=== PATIENT | male | born 1935 | race African-American/Black ===

== ENCOUNTER 2019-02-22 21:12 | Inpatient (IN) | payer MEDICARE ==
[~2019-02-22] VITALS: Ht 182.9 cm; Wt 89.8 kg
[2019-02-22 21:45] LABS: BILIRUBIN,URINE NEGATIVE (NEG); CLARITY,URINE CLEAR; COLOR,URINE YELLOW; NITRITE,URINE POSITIVE (NEG); PROTEIN,URINE 100 mg/dL (NEG-TRACE)
--- NOTE | 2019-02-22 21:53 | RAD ---
EXAM: Chest, single view. HISTORY: Weakness. COMPARISON: None. FINDINGS: A frontal view of the chest is obtained. There is no infiltrate, pleural effusion or pneumothorax. The heart is normal in size. There is a cardiac pacemaker with leads in expected position. IMPRESSION: No acute pulmonary finding. Electronically signed by: Deb Mattson MD (02/22/2019 9:50 PM) [facility]
[2019-02-22 21:56] LABS: BACTERIA,URINE MODERATE /HPF (0-FEW); SQUAMOUS EPITHELIAL CELL,UR FEW /LPF; WBC,URINE 20-40 /HPF (0-4)
[2019-02-22 21:57] LABS: HYALINE CASTS, URINE FEW /HPF; YEAST,URINE PRESENT /HPF
[2019-02-22 22:57] LABS: BASO % 0 % (0-3); EOS % 0 % (0-3); HEMATOCRIT 34.1 % (39.0-53.0); HEMOGLOBIN 11.4 g/dL (13.0-17.5); LYMPH # 1.1 x10^3/uL (1.0-4.8); LYMPH % 9 % (24-48); MEAN CORPUSCULAR HEMOGLOBIN 30 pg (25-35); MEAN CORPUSCULAR HGB CONC 33 g/dL (31-37); MEAN CORPUSCULAR VOLUME 90 fL (79-100); MONO % 8 % (0-9); NEUT # 10.6 x10^3uL (1.8-7.7); NEUT % 84 % (31-73); PLATELET COUNT 157 x10^3/uL (140-400); WHITE BLOOD COUNT 12.7 x10^3/uL (4.0-11.0)
[2019-02-22 23:10] LABS: CALCIUM 9.1 mg/dL (8.5-10.1); CREATININE 1.6 mg/dL (0.7-1.3); GFR 50.1; POTASSIUM 3.7 mmol/L (3.5-5.1)
[2019-02-22 23:16] LABS: ALBUMIN 3.6 g/dL (3.4-5.0); TOTAL BILIRUBIN 0.8 mg/dL (0.2-1.0); TOTAL PROTEIN 7.1 g/dL (6.4-8.2)
--- NOTE | 2019-02-22 23:32 | PHYS DOC ---
Adult General Chief Complaint Chief Complaint: WEAKNESS/GENERALIZED HPI HPI Patient is a 83 year old male with history of neurogenic bladder with suprapubic catheter placement who presents with generalized weakness and fa tigue. Patient has been in bed for the past 24 hours. Denies fever, chills, nausea vomiting or sweats. No chest pain palpitations shortness of breath. Denies urinary symptoms. Reports decreased appetite and oral intake over the past 24 hours. No abdominal pain, constipation or diarrhea. Additional history obtained from patient's family members who are present at bedside. [] Review of Systems Review of Systems Review symptoms as per history of present illness.] All other systems were reviewed and found to be within normal limits, except as documented in this note. Physical Exam Physical Exam Constitutional: Generally weak and fatigued appearing.. [] HENT: Normocephalic, atraumatic, bilateral external ears normal, oropharynx moist, no oral exudates, nose normal. [] Eyes: PERRLA, EOMI, conjunctiva normal, no discharge. [] Neck: Normal range of motion, no tenderness, supple, no stridor. [] Cardiovascular:Heart rate regular rhythm, no murmur [] Lungs & Thorax: Bilateral breath sounds clear to auscultation [] Abdomen: Bowel sounds normal, soft, no tenderness, suprapubic catheter in place with concentrated urine with sediment present in tubing and container with[] Skin: Warm, dry, no erythema, no rash. [] Neurologic: Alert and oriented X 3, normal motor function, normal sensory function, no focal deficits noted. [] Psychologic: Affect normal, judgement normal, mood normal. [] Current Patient Data Lab Values Laboratory Tests Test 02/22/19 21:24 02/22/19 22:03 02/22/19 22:44 Urine Collection Type Unknown Urine Color Yellow Urine Clarity Clear Urine pH 5.0 Urine Specific [place] 1.025 Urine Protein 100 mg/dL (NEG-TRACE) Urine Glucose (UA) Negative mg/dL (NEG) Urine Ketones (Stick) Trace mg/dL (NEG) Urine Blood Moderate (NEG) Urine Nitrite Positive (NEG) Urine Bilirubin Negative (NEG) Urine Urobilinogen Dipstick 1.0 mg/dL (0.2 mg/dL) Urine Leukocyte Esterase Moderate (NEG) Urine RBC 6-10 /HPF (0-2) Urine WBC 20-40 /HPF (0-4) Urine Squamous Epithelial Cells Few /LPF Urine Bacteria Moderate /HPF (0-FEW) Urine Hyaline Casts Few /HPF Urine Mucus Mod /LPF Urine Yeast Present /HPF Glucose (Fingerstick) 194 mg/dL (70-99) H White Blood Count 12.7 x10^3/uL (4.0-11.0) H Red Blood Count 3.80 x10^6/uL (4.30-5.70) L Hemoglobin 11.4 g/dL (13.0-17.5) L Hematocrit 34.1 % (39.0-53.0) L Mean Corpuscular Volume 90 fL (79-100) Mean Corpuscular Hemoglobin 30 pg (25-35) Mean Corpuscular Hemoglobin Concent 33 g/dL (31-37) Red Cell Distribution Width 15.0 % (11.5-14.5) H Platelet Count 157 x10^3/uL (140-400) Neutrophils (%) (Auto) 84 % (31-73) H Lymphocytes (%) (Auto) 9 % (24-48) L Monocytes (%) (Auto) 8 % (0-9) Eosinophils (%) (Auto) 0 % (0-3) Basophils (%) (Auto) 0 % (0-3) Neutrophils # (Auto) 10.6 x10^3uL (1.8-7.7) H Lymphocytes # (Auto) 1.1 x10^3/uL (1.0-4.8) Monocytes # (Auto) 1.0 x10^3/uL (0.0-1.1) Eosinophils # (Auto) 0.0 x10^3/uL (0.0-0.7) Basophils # (Auto) 0.0 x10^3/uL (0.0-0.2) Sodium Level 131 mmol/L (136-145) L Potassium Level 3.7 mmol/L (3.5-5.1) Chloride Level 97 mmol/L (98-107) L Carbon Dioxide Level 27 mmol/L (21-32) Anion Gap 7 (6-14) Blood Urea Nitrogen 28 mg/dL (8-26) H Creatinine 1.6 mg/dL (0.7-1.3) H Estimated GFR (Cockcroft-Gault) 50.1 BUN/Creatinine Ratio 18 (6-20) Glucose Level 185 mg/dL (70-99) H Lactic Acid Level 1.5 mmol/L (0.4-2.0) Calcium Level 9.1 mg/dL (8.5-10.1) Total Bilirubin 0.8 mg/dL (0.2-1.0) Aspartate Amino Transferase (AST) 9 U/L (15-37) L Alanine Aminotransferase (ALT) 14 U/L (16-63) L Alkaline Phosphatase 61 U/L (46-116) Troponin I Quantitative < 0.017 ng/mL (0.000-0.055) Total Protein 7.1 g/dL (6.4-8.2) Albumin 3.6 g/dL (3.4-5.0) Albumin/Globulin Ratio 1.0 (1.0-1.7) Thyroid Stimulating Hormone (TSH) 1.072 uIU/mL (0.358-3.74) Laboratory Tests 02/22/19 22:44 Laboratory Tests 02/22/19 22:44 EKG EKG [EKG: Reviewed] Radiology/Procedures Radiology/Procedures [cHest x-ray: No acute cardiopulmonary disease on preliminary ED review] Course & Med Decision Making Course & Med Decision Making Pertinent Labs and Imaging studies reviewed. (See chart for details) [EKG, lab and imaging studies reviewed. IV fluids antibiotics given. Will admit to the hospital service for further evaluation and treatment.] Dragon Disclaimer Dragon Disclaimer This electronic medical record was generated, in whole or in part, using a voice recognition dictation system. Departure Departure Impression: Primary Impression: UTI (urinary tract infection) Additional Impressions: Sepsis Hyponatremia Hyperglycemia Disposition: 09 ADMITTED INPATIENT Condition: LEFT WITHOUT BEING SEEN Referrals: STEVE ROSE (PCP) Problem Qualifiers BUFFY RENEE DO Feb 22, 2019 23:32
[2019-02-22] MEDS: IV NORMAL SALINE 1000ML BAG 1,000 ML IV SCH (23:45)
[2019-02-22] MEDS ORDERED: cefTRIAXone IV Push 1 GM VIAL. IVP ONE (23:45)
[2019-02-22] MEDS ORDERED: ONDANSETRON PF 4 MG/2 ML VIAL. IV PRN (23:45)
[2019-02-22] MEDS ORDERED: IV NORMAL SALINE 1000ML BAG 1,000 ML IV ONE (23:45)
[2019-02-23] VITALS (7 sets, daily range): BP systolic 117–147; BP diastolic 66–78
[2019-02-23] MEDS ORDERED: ASPI-630 PO (01:52)
[2019-02-23] MEDS ORDERED: METO-239 PO (01:52)
[2019-02-23] MEDS ORDERED: CYAN10005 PO (01:52)
[2019-02-23] MEDS ORDERED: INSU100I27 SQ (01:52)
[2019-02-23] MEDS ORDERED: LINA5TAB PO (01:52)
[2019-02-23] MEDS ORDERED: SIMV20TA3 PO (01:52)
[2019-02-23] MEDS ORDERED: OMEP20TA8 PO (01:52)
[2019-02-23] MEDS ORDERED: POLY17PO29 PO (01:52)
[2019-02-23 05:05] LABS: BASO % 0 % (0-3); EOS % 0 % (0-3); HEMATOCRIT 32.4 % (39.0-53.0); HEMOGLOBIN 10.9 g/dL (13.0-17.5); LYMPH # 1.8 x10^3/uL (1.0-4.8); LYMPH % 16 % (24-48); MEAN CORPUSCULAR HEMOGLOBIN 31 pg (25-35); MEAN CORPUSCULAR HGB CONC 34 g/dL (31-37); MEAN CORPUSCULAR VOLUME 91 fL (79-100); MONO # 0.9 x10^3/uL (0.0-1.1); MONO % 8 % (0-9); NEUT # 8.6 x10^3uL (1.8-7.7); NEUT % 76 % (31-73); PLATELET COUNT 140 x10^3/uL (140-400); RED BLOOD COUNT 3.55 x10^6/uL (4.30-5.70); RED CELL DISTRIBUTION WIDTH 15.5 % (11.5-14.5); WHITE BLOOD COUNT 11.4 x10^3/uL (4.0-11.0)
[2019-02-23 05:23] LABS: ALBUMIN 3.1 g/dL (3.4-5.0); ALBUMIN/GLOBULIN RATIO 1.1 (1.0-1.7); CALCIUM 8.5 mg/dL (8.5-10.1); CREATININE 1.5 mg/dL (0.7-1.3); GFR 53.9; POTASSIUM 3.8 mmol/L (3.5-5.1); TOTAL BILIRUBIN 0.8 mg/dL (0.2-1.0); TOTAL PROTEIN 5.9 g/dL (6.4-8.2)
[2019-02-23] MEDS: IV NORMAL SALINE 1000ML BAG 1,000 ML IV SCH ×3 (06:25→20:49)
[2019-02-23] MEDS ORDERED: DEXTROSE 50% 25 GM / 50ML DISP.SYRIN. IV PRN ×2 (07:00→10:30)
--- NOTE | 2019-02-23 07:34 | EKG ---
[facility] [address] [place] [address] Test Date: 2019-02-22 Test Time: 21:51:13 Pat Name: MJ PATTEN Department: Room: Gender: M Help Desk Supervisor: MELISSA : [id number] Requested By: BUFFY RENEE Order Number: [id number] Reading MD: Measurements Intervals [place] Rate: 83 P: -39 MO: 184 QRS: -56 QRSD: 134 T: 92 QT: 394 QTc: 469 Interpretive Statements SINUS RHYTHM ABNORMAL LEFT AXIS DEVIATION LEFT ANTERIOR FASCICULAR BLOCK RIGHT BUNDLE BRANCH BLOCK BIFASCICULAR BLOCK QRS(T) CONTOUR ABNORMALITY CONSIDER ANTEROSEPTAL MYOCARDIAL DAMAGE ABNORMAL ECG RI6.01 No previous ECG available for comparison
[2019-02-23] MEDS ORDERED: INSULIN LISPRO 300 UNITS/3 ML INSULN.PEN. SQ SCH (08:00)
--- NOTE | 2019-02-23 10:42 | PDOC1 ---
History and Physical Date of Admission Date of Admission DATE: 02/23/19 TIME: 10:27 Identification/Chief Complaint Chief Complaint weakness, confusion Source Source: Chart review, Patient History of Present Illness History of Present Illness Mr. Sellers, is a 83 year old male admit with confusion and weakness. he has a recent history of neurogenic bladder with suprapubic catheter placement at a few months ago. He had a long course there with sepsis, then weakenss, required SNU for a time, and is still on home health, cath changed 02/09 Patient had been in bed for the past 24 hours. Denies fever, chills, nausea vomiting or sweats. No chest pain palpitations shortness of breath Reports decreased appetite and oral intake over the past 24 hours. not hungry this AM he is in room and greatly assisted with this story Past Medical History Cardiovascular: HTN CENTRAL NERVOUS SYSTEM: Dementia (decline) Heme/Onc: B12 deficiency Musculoskeletal: low back pain Endocrine: Diabetes Past Surgical History Past Surgical History: Other (suprapubic cath) Family History Family History: No Significant Social History Smoke: No ALCOHOL: none Current Problem List Problem List Problems Medical Problems: (1) Hyperglycemia Status: Acute (2) Hyponatremia Status: Acute (3) Sepsis Status: Acute (4) UTI (urinary tract infection) Status: Acute Current Medications Current Medications Current Medications Sodium Chloride 1,000 ml @ 1,000 mls/hr 1X ONCE IV Last administered on 02/22/19at 23:36; Start 02/22/19 at 23:45; Stop 02/23/19 at 00:44; Status DC Ceftriaxone Sodium (Rocephin) 1 gm 1X ONCE IVP Last administered on 02/22/19at 23:44; Start 02/22/19 at 23:45; Stop 02/22/19 at 23:46; Status DC Ondansetron HCl (Zofran) 4 mg PRN Q8HRS PRN IV NAUSEA/VOMITING; Start 02/22/19 at 23:45; Stop 02/23/19 at 23:44 Sodium Chloride 1,000 ml @ 150 mls/hr Q6H40M IV Last administered on 02/22/19at 23:45; Start 02/22/19 at 23:45; Stop 02/23/19 at 23:44 Insulin Human Lispro (HumaLOG) 0-5 UNITS TIDWMEALS SQ ; Start 02/23/19 at 08:00 Dextrose (Dextrose 50%-Water Syringe) 12.5 gm PRN Q15MIN PRN IV SEE COMMENTS; Start 02/23/19 at 07:00 Active Scripts Active Reported Metoprolol Succinate ( Xl ) (Metoprolol Succinate) 25 Mg Tab.er.24h 12.5 Mg PO HS Tradjenta (Linagliptin) 5 Mg Tablet 5 Mg PO DAILY Simvastatin 20 Mg Tablet 20 Mg PO HS Miralax (Polyethylene Glycol 3350) 17 Gm Powd.pack 1 Pkt PO DAILY Omeprazole 20 Mg Tablet.dr 20 Mg PO DAILY Levemir Flextouch (Insulin Detemir) 100 Unit/1 Ml Insuln.pen 14 Unit SQ HS Vitamin B-12 (Cyanocobalamin (Vitamin B-12)) 1,000 Mcg Tablet 500 Mcg PO DAILY Aspirin 81 Mg Tab.chew 1 Tab PO HS Allergies Allergies: Coded Allergies: No Known Drug Allergies (Unverified , 02/22/19) ROS General: YES: Chills, Fatigue, Malaise, Appetite PSYCHOLOGICAL ROS: YES: Disorientation, Sleep disturbances; No: Anxiety, Behavioral Disorder, Concentration difficultie, Decreased asad yue, Depression, Hallucinations, Hostility, Irritablity, Memory difficulties, Mood Swings, Obsessive thoughts, Other Eyes: No Blurry vision, No Decreased vision, No Double vision, No Dry eyes, No Excessive tearing, No Eye Pain, No Itchy Eyes, No Loss of vision, No Photophobia, No Scotomata, No Uses contacts, No Uses glasses, No Other HEENT: No: Heacaches, Visual Changes, Hearing change, Nasal congestion, Nasal discharge, Oral lesions, Sinus pain, Sore Throat, Epistaxis, Sneezing, Snoring, Tinnitus, Vertigo, Vocal changes, Other Respiratory: No: Cough, Hemoptysis, Orthopnea, Pleuritic Pain, Shortness of breath, SOB with excertion, Sputum Changes, Stridor, Tachypnea, Wheezing, Other Cardiovascular: No Chest Pain, No Palpitations, No Orthopnea, No Paroxysmal Noc. Dyspnea, No Edema, No Lt Headedness, No Other Gastrointestinal: No Nausea, No Vomiting, No Abdominal Pain, No Diarrhea, No Constipation, No Melena, No Hematochezia, No Other Genitourinary: YES Dysuria, YES Other Musculoskeletal: No Gait Disturbance, No Joint Pain, No Joint Stiffness, No Joint Swelling, No Muscle Pain, No Muscular Weakness, No Pain In:, No Swelling In:, No Other Neurological: No Behavorial Changes, No Bowel/Bladder ControlChng, No Confusion, No Dizziness, No Gait Disturbance, No Headaches, No Impaired Coord/balance, No Memory Loss, No Numbness/Tingling, No Seizures, No Speech Problems, No Tremors, No Visual Changes, No Weakness, No Other Skin: Yes Dry Skin Physical Exam General: Alert, Cooperative, No acute distress, Other (oriented 3/4) HEENT: Atraumatic, PERRLA, Mucous membr. moist/pink Lungs: Clear to auscultation, Normal air movement Heart: S1S2, no gallops, no murmurs Extremities: No cyanosis, No edema, Normal pulses Skin: No rashes Neuro: Normal speech, Sensation intact Psych/Mental Status: Mental status NL Vitals Vitals Vital Signs Date Time Temp Pulse Resp B/P (MAP) Pulse Ox O2 Delivery O2 Flow Rate FiO2 02/23/19 08:00 Room Air 02/23/19 07:00 98.7 79 12 117/69 (85) 92 98.7 Labs Labs Laboratory Tests Test 02/22/19 21:24 02/22/19 22:03 02/22/19 22:44 02/23/19 04:10 Urine Collection Type Unknown Urine Color Yellow Urine Clarity Clear Urine pH 5.0 Urine Specific [place] 1.025 Urine Protein 100 mg/dL (NEG-TRACE) Urine Glucose (UA) Negative mg/dL (NEG) Urine Ketones (Stick) Trace mg/dL (NEG) Urine Blood Moderate (NEG) Urine Nitrite Positive (NEG) Urine Bilirubin Negative (NEG) Urine Urobilinogen Dipstick 1.0 mg/dL (0.2 mg/dL) Urine Leukocyte Esterase Moderate (NEG) Urine RBC 6-10 /HPF (0-2) Urine WBC 20-40 /HPF (0-4) Urine Squamous Epithelial Cells Few /LPF Urine Bacteria Moderate /HPF (0-FEW) Urine Hyaline Casts Few /HPF Urine Mucus Mod /LPF Urine Yeast Present /HPF Glucose (Fingerstick) 194 mg/dL (70-99) White Blood Count 12.7 x10^3/uL (4.0-11.0) 11.4 x10^3/uL (4.0-11.0) Red Blood Count 3.80 x10^6/uL (4.30-5.70) 3.55 x10^6/uL (4.30-5.70) Hemoglobin 11.4 g/dL (13.0-17.5) 10.9 g/dL (13.0-17.5) Hematocrit 34.1 % (39.0-53.0) 32.4 % (39.0-53.0) Mean Corpuscular Volume 90 fL (79-100) 91 fL (79-100) Mean Corpuscular Hemoglobin 30 pg (25-35) 31 pg (25-35) Mean Corpuscular Hemoglobin Concent 33 g/dL (31-37) 34 g/dL (31-37) Red Cell Distribution Width 15.0 % (11.5-14.5) 15.5 % (11.5-14.5) Platelet Count 157 x10^3/uL (140-400) 140 x10^3/uL (140-400) Neutrophils (%) (Auto) 84 % (31-73) 76 % (31-73) Lymphocytes (%) (Auto) 9 % (24-48) 16 % (24-48) Monocytes (%) (Auto) 8 % (0-9) 8 % (0-9) Eosinophils (%) (Auto) 0 % (0-3) 0 % (0-3) Basophils (%) (Auto) 0 % (0-3) 0 % (0-3) Neutrophils # (Auto) 10.6 x10^3uL (1.8-7.7) 8.6 x10^3uL (1.8-7.7) Lymphocytes # (Auto) 1.1 x10^3/uL (1.0-4.8) 1.8 x10^3/uL (1.0-4.8) Monocytes # (Auto) 1.0 x10^3/uL (0.0-1.1) 0.9 x10^3/uL (0.0-1.1) Eosinophils # (Auto) 0.0 x10^3/uL (0.0-0.7) 0.0 x10^3/uL (0.0-0.7) Basophils # (Auto) 0.0 x10^3/uL (0.0-0.2) 0.0 x10^3/uL (0.0-0.2) Sodium Level 131 mmol/L (136-145) 139 mmol/L (136-145) Potassium Level 3.7 mmol/L (3.5-5.1) 3.8 mmol/L (3.5-5.1) Chloride Level 97 mmol/L (98-107) 104 mmol/L (98-107) Carbon Dioxide Level 27 mmol/L (21-32) 28 mmol/L (21-32) Anion Gap 7 (6-14) 7 (6-14) Blood Urea Nitrogen 28 mg/dL (8-26) 23 mg/dL (8-26) Creatinine 1.6 mg/dL (0.7-1.3) 1.5 mg/dL (0.7-1.3) Estimated GFR (Cockcroft-Gault) 50.1 53.9 BUN/Creatinine Ratio 18 (6-20) 15 (6-20) Glucose Level 185 mg/dL (70-99) 85 mg/dL (70-99) Lactic Acid Level 1.5 mmol/L (0.4-2.0) Calcium Level 9.1 mg/dL (8.5-10.1) 8.5 mg/dL (8.5-10.1) Total Bilirubin 0.8 mg/dL (0.2-1.0) 0.8 mg/dL (0.2-1.0) Aspartate Amino Transf (AST/SGOT) 9 U/L (15-37) 9 U/L (15-37) Alanine Aminotransferase (ALT/SGPT) 14 U/L (16-63) 11 U/L (16-63) Alkaline Phosphatase 61 U/L (46-116) 56 U/L (46-116) Troponin I Quantitative < 0.017 ng/mL (0.000-0.055) Total Protein 7.1 g/dL (6.4-8.2) 5.9 g/dL (6.4-8.2) Albumin 3.6 g/dL (3.4-5.0) 3.1 g/dL (3.4-5.0) Albumin/Globulin Ratio 1.0 (1.0-1.7) 1.1 (1.0-1.7) Thyroid Stimulating Hormone (TSH) 1.072 uIU/mL (0.358-3.74) FY-Eig-K-Type Natriuretic Peptide 527 pg/mL (0-449) Test 02/23/19 07:36 Glucose (Fingerstick) 59 mg/dL (70-99) Laboratory Tests Test 02/22/19 21:24 02/22/19 22:03 02/22/19 22:44 02/23/19 04:10 Urine Collection Type Unknown Urine Color Yellow Urine Clarity Clear Urine pH 5.0 Urine Specific [place] 1.025 Urine Protein 100 mg/dL (NEG-TRACE) Urine Glucose (UA) Negative mg/dL (NEG) Urine Ketones (Stick) Trace mg/dL (NEG) Urine Blood Moderate (NEG) Urine Nitrite Positive (NEG) Urine Bilirubin Negative (NEG) Urine Urobilinogen Dipstick 1.0 mg/dL (0.2 mg/dL) Urine Leukocyte Esterase Moderate (NEG) Urine RBC 6-10 /HPF (0-2) Urine WBC 20-40 /HPF (0-4) Urine Squamous Epithelial Cells Few /LPF Urine Bacteria Moderate /HPF (0-FEW) Urine Hyaline Casts Few /HPF Urine Mucus Mod /LPF Urine Yeast Present /HPF Glucose (Fingerstick) 194 mg/dL (70-99) White Blood Count 12.7 x10^3/uL (4.0-11.0) 11.4 x10^3/uL (4.0-11.0) Red Blood Count 3.80 x10^6/uL (4.30-5.70) 3.55 x10^6/uL (4.30-5.70) Hemoglobin 11.4 g/dL (13.0-17.5) 10.9 g/dL (13.0-17.5) Hematocrit 34.1 % (39.0-53.0) 32.4 % (39.0-53.0) Mean Corpuscular Volume 90 fL (79-100) 91 fL (79-100) Mean Corpuscular Hemoglobin 30 pg (25-35) 31 pg (25-35) Mean Corpuscular Hemoglobin Concent 33 g/dL (31-37) 34 g/dL (31-37) Red Cell Distribution Width 15.0 % (11.5-14.5) 15.5 % (11.5-14.5) Platelet Count 157 x10^3/uL (140-400) 140 x10^3/uL (140-400) Neutrophils (%) (Auto) 84 % (31-73) 76 % (31-73) Lymphocytes (%) (Auto) 9 % (24-48) 16 % (24-48) Monocytes (%) (Auto) 8 % (0-9) 8 % (0-9) Eosinophils (%) (Auto) 0 % (0-3) 0 % (0-3) Basophils (%) (Auto) 0 % (0-3) 0 % (0-3) Neutrophils # (Auto) 10.6 x10^3uL (1.8-7.7) 8.6 x10^3uL (1.8-7.7) Lymphocytes # (Auto) 1.1 x10^3/uL (1.0-4.8) 1.8 x10^3/uL (1.0-4.8) Monocytes # (Auto) 1.0 x10^3/uL (0.0-1.1) 0.9 x10^3/uL (0.0-1.1) Eosinophils # (Auto) 0.0 x10^3/uL (0.0-0.7) 0.0 x10^3/uL (0.0-0.7) Basophils # (Auto) 0.0 x10^3/uL (0.0-0.2) 0.0 x10^3/uL (0.0-0.2) Sodium Level 131 mmol/L (136-145) 139 mmol/L (136-145) Potassium Level 3.7 mmol/L (3.5-5.1) 3.8 mmol/L (3.5-5.1) Chloride Level 97 mmol/L (98-107) 104 mmol/L (98-107) Carbon Dioxide Level 27 mmol/L (21-32) 28 mmol/L (21-32) Anion Gap 7 (6-14) 7 (6-14) Blood Urea Nitrogen 28 mg/dL (8-26) 23 mg/dL (8-26) Creatinine 1.6 mg/dL (0.7-1.3) 1.5 mg/dL (0.7-1.3) Estimated GFR (Cockcroft-Gault) 50.1 53.9 BUN/Creatinine Ratio 18 (6-20) 15 (6-20) Glucose Level 185 mg/dL (70-99) 85 mg/dL (70-99) Lactic Acid Level 1.5 mmol/L (0.4-2.0) Calcium Level 9.1 mg/dL (8.5-10.1) 8.5 mg/dL (8.5-10.1) Total Bilirubin 0.8 mg/dL (0.2-1.0) 0.8 mg/dL (0.2-1.0) Aspartate Amino Transf (AST/SGOT) 9 U/L (15-37) 9 U/L (15-37) Alanine Aminotransferase (ALT/SGPT) 14 U/L (16-63) 11 U/L (16-63) Alkaline Phosphatase 61 U/L (46-116) 56 U/L (46-116) Troponin I Quantitative < 0.017 ng/mL (0.000-0.055) Total Protein 7.1 g/dL (6.4-8.2) 5.9 g/dL (6.4-8.2) Albumin 3.6 g/dL (3.4-5.0) 3.1 g/dL (3.4-5.0) Albumin/Globulin Ratio 1.0 (1.0-1.7) 1.1 (1.0-1.7) Thyroid Stimulating Hormone (TSH) 1.072 uIU/mL (0.358-3.74) HX-Oqe-D-Type Natriuretic Peptide 527 pg/mL (0-449) Test 02/23/19 07:36 Glucose (Fingerstick) 59 mg/dL (70-99) VTE Prophylaxis Ordered VTE Prophylaxis Devices: No VTE Pharmacological Prophylaxi: Yes Assessment/Plan Assessment/Plan suprapubic cath, with infection, UTI, sepsis admit cognitive decline weakness and debility after sepsis from UTI at [facility] 11/09 Dm2, meds, add SSI CKD 3 TOMASZ LOCKE MD Feb 23, 2019 10:42
[2019-02-23] MEDS: INSULIN LISPRO 300 UNITS/3 ML INSULN.PEN. SQ SCH ×2 (12:00→17:00)
--- NOTE | 2019-02-23 12:23 | NUR ---
SS following for discharge planning. SS reviewed pt chart. Pt is from home with spouse and is currently on room air. SS met with pt in room and pt reported that he was on services with [facility], ; fax [phone]. SS will continue to follow for discharge planning.
[2019-02-23] MEDS: PANTOPRAZOLE 40 MG TABLET.DR. PO SCH (12:36)
[2019-02-23] MEDS: LINAGLIPTIN 5 MG TABLET PO SCH (12:36)
[2019-02-23] MEDS: CYANOCOBALAMIN (VITAMIN B-12) 1,000 MCG TABLET. PO SCH (12:36)
[2019-02-23] MEDS: POLYETHYLENE GLYCOL 3350 17 GM PACKET. PO SCH (12:36)
[2019-02-23] MEDS: ENOXAPARIN 40 MG/0.4 ML SYRINGE. SQ SCH (12:37)
--- NOTE | 2019-02-23 17:12 | NUR ---
Patient's dad came to visit. This nurse educated the family visitor on PPE, where gown and gloves were donned.
[2019-02-23] MEDS: cefTRIAXone IV Push 1 GM VIAL. IVP SCH (20:50)
[2019-02-23] MEDS: SIMVASTATIN 20 MG TABLET PO SCH (20:50)
[2019-02-23] MEDS: ASPIRIN CHEWABLE 81 MG TABLET. PO SCH (20:50)
[2019-02-23] MEDS: METOPROLOL SUCC 24HR ER 25 MG TAB.ER.24H. PO SCH (20:51)
[2019-02-23] MEDS: INSULIN GLARGINE 300 UNITS/3 ML INSULN.PEN. SQ SCH (21:04)
[2019-02-24 02:52] VITALS: BP 123/75
[2019-02-24] MEDS: PANTOPRAZOLE 40 MG TABLET.DR. PO SCH (06:40)
[2019-02-24 07:00] VITALS: BP 149/83
[2019-02-24] MEDS: INSULIN LISPRO 300 UNITS/3 ML INSULN.PEN. SQ SCH ×3 (08:00→17:00)
[2019-02-24] MEDS: LINAGLIPTIN 5 MG TABLET PO SCH (09:45)
[2019-02-24] MEDS: CYANOCOBALAMIN (VITAMIN B-12) 1,000 MCG TABLET. PO SCH (09:45)
[2019-02-24] MEDS: POLYETHYLENE GLYCOL 3350 17 GM PACKET. PO SCH (09:46)
[2019-02-24] MEDS: IV NORMAL SALINE 1000ML BAG 1,000 ML IV SCH ×2 (09:46→23:06)
--- NOTE | 2019-02-24 10:51 | PDOC ---
[facility] PROGRESS NOTE Chief Complaint Chief Complaint Suprapubic cath, with infection, UTI, sepsis Diabetes Chronic kidney disease Debilit History of Present Illness History of Present Illness Patient seen and examined this morning Discussed with his nurse and the case management team He is up in the chair Vitals Vitals Vital Signs Date Time Temp Pulse Resp B/P (MAP) Pulse Ox O2 Delivery O2 Flow Rate FiO2 02/24/19 07:00 98.4 76 18 149/83 (105) 92 Room Air 98.4 Physical Exam General: Alert, Cooperative, No acute distress, Other (oriented 3/4) Lungs: Clear Abdomen: Normal bowel sounds, Soft Extremities: No cyanosis, No edema, Normal pulses Skin: No rashes Labs Labs: Laboratory Tests Test 02/23/19 11:47 02/23/19 16:58 02/23/19 20:38 02/24/19 07:37 Glucose (Fingerstick) 125 mg/dL (70-99) 137 mg/dL (70-99) 145 mg/dL (70-99) 129 mg/dL (70-99) Assessment and Plan Assessmemt and Plan Problems Medical Problems: (1) Hyperglycemia Status: Acute (2) Hyponatremia Status: Acute Suprapubic cath, with infection, UTI, sepsis Diabetes Chronic kidney disease Debility Plan IV normal saline IV Rocephin Home meds DVT prophylaxis Full code Hope to discharge tomorrow Comment Review of Relevant I have reviewed the following items jasper (where applicable) has been applied. Labs Laboratory Tests Test 02/22/19 21:24 02/22/19 22:03 02/22/19 22:44 02/23/19 04:10 Urine Collection Type Unknown Urine Color Yellow Urine Clarity Clear Urine pH 5.0 Urine Specific [place] 1.025 Urine Protein 100 mg/dL (NEG-TRACE) Urine Glucose (UA) Negative mg/dL (NEG) Urine Ketones (Stick) Trace mg/dL (NEG) Urine Blood Moderate (NEG) Urine Nitrite Positive (NEG) Urine Bilirubin Negative (NEG) Urine Urobilinogen Dipstick 1.0 mg/dL (0.2 mg/dL) Urine Leukocyte Esterase Moderate (NEG) Urine RBC 6-10 /HPF (0-2) Urine WBC 20-40 /HPF (0-4) Urine Squamous Epithelial Cells Few /LPF Urine Bacteria Moderate /HPF (0-FEW) Urine Hyaline Casts Few /HPF Urine Mucus Mod /LPF Urine Yeast Present /HPF Glucose (Fingerstick) 194 mg/dL (70-99) White Blood Count 12.7 x10^3/uL (4.0-11.0) 11.4 x10^3/uL (4.0-11.0) Red Blood Count 3.80 x10^6/uL (4.30-5.70) 3.55 x10^6/uL (4.30-5.70) Hemoglobin 11.4 g/dL (13.0-17.5) 10.9 g/dL (13.0-17.5) Hematocrit 34.1 % (39.0-53.0) 32.4 % (39.0-53.0) Mean Corpuscular Volume 90 fL (79-100) 91 fL (79-100) Mean Corpuscular Hemoglobin 30 pg (25-35) 31 pg (25-35) Mean Corpuscular Hemoglobin Concent 33 g/dL (31-37) 34 g/dL (31-37) Red Cell Distribution Width 15.0 % (11.5-14.5) 15.5 % (11.5-14.5) Platelet Count 157 x10^3/uL (140-400) 140 x10^3/uL (140-400) Neutrophils (%) (Auto) 84 % (31-73) 76 % (31-73) Lymphocytes (%) (Auto) 9 % (24-48) 16 % (24-48) Monocytes (%) (Auto) 8 % (0-9) 8 % (0-9) Eosinophils (%) (Auto) 0 % (0-3) 0 % (0-3) Basophils (%) (Auto) 0 % (0-3) 0 % (0-3) Neutrophils # (Auto) 10.6 x10^3uL (1.8-7.7) 8.6 x10^3uL (1.8-7.7) Lymphocytes # (Auto) 1.1 x10^3/uL (1.0-4.8) 1.8 x10^3/uL (1.0-4.8) Monocytes # (Auto) 1.0 x10^3/uL (0.0-1.1) 0.9 x10^3/uL (0.0-1.1) Eosinophils # (Auto) 0.0 x10^3/uL (0.0-0.7) 0.0 x10^3/uL (0.0-0.7) Basophils # (Auto) 0.0 x10^3/uL (0.0-0.2) 0.0 x10^3/uL (0.0-0.2) Sodium Level 131 mmol/L (136-145) 139 mmol/L (136-145) Potassium Level 3.7 mmol/L (3.5-5.1) 3.8 mmol/L (3.5-5.1) Chloride Level 97 mmol/L (98-107) 104 mmol/L (98-107) Carbon Dioxide Level 27 mmol/L (21-32) 28 mmol/L (21-32) Anion Gap 7 (6-14) 7 (6-14) Blood Urea Nitrogen 28 mg/dL (8-26) 23 mg/dL (8-26) Creatinine 1.6 mg/dL (0.7-1.3) 1.5 mg/dL (0.7-1.3) Estimated GFR (Cockcroft-Gault) 50.1 53.9 BUN/Creatinine Ratio 18 (6-20) 15 (6-20) Glucose Level 185 mg/dL (70-99) 85 mg/dL (70-99) Lactic Acid Level 1.5 mmol/L (0.4-2.0) Calcium Level 9.1 mg/dL (8.5-10.1) 8.5 mg/dL (8.5-10.1) Total Bilirubin 0.8 mg/dL (0.2-1.0) 0.8 mg/dL (0.2-1.0) Aspartate Amino Transf (AST/SGOT) 9 U/L (15-37) 9 U/L (15-37) Alanine Aminotransferase (ALT/SGPT) 14 U/L (16-63) 11 U/L (16-63) Alkaline Phosphatase 61 U/L (46-116) 56 U/L (46-116) Troponin I Quantitative < 0.017 ng/mL (0.000-0.055) Total Protein 7.1 g/dL (6.4-8.2) 5.9 g/dL (6.4-8.2) Albumin 3.6 g/dL (3.4-5.0) 3.1 g/dL (3.4-5.0) Albumin/Globulin Ratio 1.0 (1.0-1.7) 1.1 (1.0-1.7) Thyroid Stimulating Hormone (TSH) 1.072 uIU/mL (0.358-3.74) UC-Ymc-V-Type Natriuretic Peptide 527 pg/mL (0-449) Test 02/23/19 07:36 02/23/19 11:47 02/23/19 16:58 02/23/19 20:38 Glucose (Fingerstick) 59 mg/dL (70-99) 125 mg/dL (70-99) 137 mg/dL (70-99) 145 mg/dL (70-99) Test 02/24/19 07:37 Glucose (Fingerstick) 129 mg/dL (70-99) Laboratory Tests Test 02/23/19 11:47 02/23/19 16:58 02/23/19 20:38 02/24/19 07:37 Glucose (Fingerstick) 125 mg/dL (70-99) 137 mg/dL (70-99) 145 mg/dL (70-99) 129 mg/dL (70-99) Microbiology 02/22/19 Blood Culture - Preliminary, Resulted NO GROWTH AFTER 1 DAY Medications Current Medications Sodium Chloride 1,000 ml @ 1,000 mls/hr 1X ONCE IV Last administered on 02/22/19at 23:36; Start 02/22/19 at 23:45; Stop 02/23/19 at 00:44; Status DC Ceftriaxone Sodium (Rocephin) 1 gm 1X ONCE IVP Last administered on 02/22/19at 23:44; Start 02/22/19 at 23:45; Stop 02/22/19 at 23:46; Status DC Ondansetron HCl (Zofran) 4 mg PRN Q8HRS PRN IV NAUSEA/VOMITING; Start 02/22/19 at 23:45; Stop 02/23/19 at 23:44; Status DC Sodium Chloride 1,000 ml @ 150 mls/hr Q6H40M IV Last administered on 02/23/19at 20:49; Start 02/22/19 at 23:45; Stop 02/23/19 at 23:44; Status DC Insulin Human Lispro (HumaLOG) 0-5 UNITS TIDWMEALS SQ ; Start 02/23/19 at 08:00; Stop 02/23/19 at 10:45; Status DC Dextrose (Dextrose 50%-Water Syringe) 12.5 gm PRN Q15MIN PRN IV SEE COMMENTS; Start 02/23/19 at 07:00 Ceftriaxone Sodium (Rocephin) 1 gm Q24H IVP Last administered on 02/23/19at 20:50; Start 02/23/19 at 21:00 Aspirin (Children'S Aspirin) 81 mg HS PO Last administered on 02/23/19at 20:50; Start 02/23/19 at 21:00 Cyanocobalamin (Vitamin B-12) 500 mcg DAILY PO Last administered on 02/24/19at 09:45; Start 02/23/19 at 11:00 Linagliptin (Tradjenta) 5 mg DAILY PO Last administered on 02/24/19at 09:45; Start 02/23/19 at 11:00 Metoprolol Succinate (Toprol Xl) 12.5 mg HS PO Last administered on 02/23/19at 20:51; Start 02/23/19 at 21:00 Insulin Glargine (Lantus) 14 units QHS SQ Last administered on 02/23/19at 21:04; Start 02/23/19 at 21:00 Pantoprazole Sodium (Protonix) 40 mg DAILYAC PO Last administered on 02/24/19at 06:40; Start 02/23/19 at 11:00 Polyethylene Glycol (miraLAX PACKET) 17 gm DAILY PO Last administered on 02/24/19at 09:46; Start 02/23/19 at 11:00 Simvastatin (Zocor) 20 mg HS PO Last administered on 02/23/19at 20:50; Start 02/23/19 at 21:00 Insulin Human Lispro (HumaLOG) 0-7 UNITS TIDWMEALS SQ ; Start 02/23/19 at 12:00 Dextrose (Dextrose 50%-Water Syringe) 12.5 gm PRN Q15MIN PRN IV SEE COMMENTS; Start 02/23/19 at 10:30 Enoxaparin Sodium (Lovenox Per Pharmacy Prophylaxis Dosing) 1 each PRN DAILY PRN MC SEE COMMENTS; Start 02/23/19 at 10:45 Enoxaparin Sodium (Lovenox 40mg Syringe) 40 mg Q24H SQ Last administered on 02/23/19at 12:37; Start 02/23/19 at 12:00 Sodium Chloride 1,000 ml @ 75 mls/hr [id number] IV Last administered on 02/24/19at 09:46; Start 02/24/19 at 09:30 Active Scripts Active Reported Metoprolol Succinate ( Xl ) (Metoprolol Succinate) 25 Mg Tab.er.24h 12.5 Mg PO HS Tradjenta (Linagliptin) 5 Mg Tablet 5 Mg PO DAILY Simvastatin 20 Mg Tablet 20 Mg PO HS Miralax (Polyethylene Glycol 3350) 17 Gm Powd.pack 1 Pkt PO DAILY Omeprazole 20 Mg Tablet.dr 20 Mg PO DAILY Levemir Flextouch (Insulin Detemir) 100 Unit/1 Ml Insuln.pen 14 Unit SQ HS Vitamin B-12 (Cyanocobalamin (Vitamin B-12)) 1,000 Mcg Tablet 500 Mcg PO DAILY Aspirin 81 Mg Tab.chew 1 Tab PO HS Vitals/I & O Vital Sign - Last 24 Hours 02/23/19 02/23/19 02/23/19 02/23/19 14:57 19:00 20:00 20:51 Temp 97.6 98.8 97.6 98.8 Pulse 72 79 79 Resp 14 16 B/P (MAP) 134/77 (96) 140/78 (98) 140/78 Pulse Ox 91 98 O2 Delivery Room Air Room Air Room Air 02/23/19 02/24/19 02/24/19 22:35 02:52 07:00 Temp 98.0 98.5 98.4 98.0 98.5 98.4 Pulse 77 80 76 Resp 18 18 18 B/P (MAP) 147/75 (99) 123/75 (91) 149/83 (105) Pulse Ox 96 95 92 O2 Delivery Room Air Room Air Room Air Intake and Output 02/23/19 02/23/19 02/24/19 15:00 23:00 07:00 Intake Total 472 ml 300 ml Output Total 900 ml 3600 ml Balance -428 ml -3300 ml YE GAVIRIA III DO Feb 24, 2019 10:51
[2019-02-24 11:00] VITALS: BP 159/89
[2019-02-24] MEDS: ENOXAPARIN 40 MG/0.4 ML SYRINGE. SQ SCH (12:55)
[2019-02-24 15:00] VITALS: BP 153/87
[2019-02-24 19:00] VITALS: BP 151/81
[2019-02-24 22:41] VITALS: BP 150/83
[2019-02-24] MEDS: SIMVASTATIN 20 MG TABLET PO SCH (23:04)
[2019-02-24] MEDS: METOPROLOL SUCC 24HR ER 25 MG TAB.ER.24H. PO SCH (23:05)
[2019-02-24] MEDS: cefTRIAXone IV Push 1 GM VIAL. IVP SCH (23:05)
[2019-02-24] MEDS: ASPIRIN CHEWABLE 81 MG TABLET. PO SCH (23:05)
[2019-02-24] MEDS: LACTOBACILLUS RHAMNOSUS GG 1 CAPSULE. PO SCH (23:05)
[2019-02-24] MEDS: INSULIN GLARGINE 300 UNITS/3 ML INSULN.PEN. SQ SCH (23:06)
[2019-02-25 03:00] VITALS: BP 119/77
[2019-02-25 06:32] VITALS: BP 141/76
[2019-02-25] MEDS: INSULIN LISPRO 300 UNITS/3 ML INSULN.PEN. SQ SCH ×2 (08:00→12:00)
[2019-02-25] MEDS: LACTOBACILLUS RHAMNOSUS GG 1 CAPSULE. PO SCH (08:32)
[2019-02-25] MEDS: PANTOPRAZOLE 40 MG TABLET.DR. PO SCH (08:32)
[2019-02-25] MEDS: POLYETHYLENE GLYCOL 3350 17 GM PACKET. PO SCH (08:32)
[2019-02-25] MEDS: LINAGLIPTIN 5 MG TABLET PO SCH (08:32)
[2019-02-25] MEDS: CYANOCOBALAMIN (VITAMIN B-12) 1,000 MCG TABLET. PO SCH (08:32)
[2019-02-25 11:00] VITALS: BP 146/84
[2019-02-25] MEDS: ENOXAPARIN 40 MG/0.4 ML SYRINGE. SQ SCH (12:00)
[2019-02-25] MEDS: IV NORMAL SALINE 1000ML BAG 1,000 ML IV SCH (12:10)
[2019-02-25] MEDS ORDERED: CIPR500T94 PO (12:18)
--- NOTE | 2019-02-25 12:27 | PDOC3 ---
Discharge Summary Visit Information Date of Admission: Feb 23, 2019 Date of Discharge: Feb 25, 2019 Admitting Diagnosis Comment: Assessment/Plan suprapubic cath, with infection, UTI, sepsis admit cognitive decline weakness and debility after sepsis from UTI at 11/09 Dm2, meds, add SSI CKD 3 Final Diagnosis Problems Medical Problems: (1) Hyperglycemia Status: Acute (2) Hyponatremia Status: Acute (3) Sepsis Status: Acute (4) UTI (urinary tract infection) Status: Acute Brief Hospital Course Allergies Allergies Coded Allergies Type Severity Reaction Last Updated Verified No Known Drug Allergies 02/22/19 No Vital Signs Vital Signs Date Time Temp Pulse Resp B/P (MAP) Pulse Ox O2 Delivery O2 Flow Rate FiO2 02/25/19 11:00 97.5 80 16 146/84 (104) 97 Room Air 97.5 Lab Results Laboratory Tests Test 02/23/19 16:58 02/23/19 20:38 02/24/19 07:37 02/24/19 11:38 Glucose (Fingerstick) 137 mg/dL (70-99) 145 mg/dL (70-99) 129 mg/dL (70-99) 154 mg/dL (70-99) Test 02/24/19 16:44 02/24/19 20:31 02/25/19 07:47 02/25/19 11:46 Glucose (Fingerstick) 146 mg/dL (70-99) 167 mg/dL (70-99) 133 mg/dL (70-99) 128 mg/dL (70-99) Laboratory Tests Test 02/24/19 16:44 02/24/19 20:31 02/25/19 07:47 02/25/19 11:46 Glucose (Fingerstick) 146 mg/dL (70-99) 167 mg/dL (70-99) 133 mg/dL (70-99) 128 mg/dL (70-99) Brief Hospital Course Mr. Sellers is a 83 old male who came in with confusion and lethargy, suprapubic catheter, recent UTI at . GNR UTI on urine culture but did not want to wait for identification and sensitivities-I'm discharging on by mouth Cipro with strict instructions to follow up with [facility] and I have provided contact info Discussed with , patient seen and examined, DC time less than 30 minutes To go home with a catheter NO consults NOn toxic appearing, afebrile, no PT needs Discharge Information Condition at Discharge: Improved, Stable Follow Up: Weeks ([facility] urologuist or PCP) Disposition/Orders: D/C to Home Scheduled Aspirin (Aspirin) 81 Mg Tab.chew, 1 TAB PO HS for stroke prevention, #30 Ref 3 (Reported) Entered as Reported by: Yunier Lay on 02/23/19151 Last Taken: UNKNOWN on Unknown Date & Time Last Action: Continued on 02/23/191027 by TOMASZ LOCKE Ciprofloxacin Hcl (Cipro) 500 Mg Tablet, 1 TAB PO BID for UTI, #20 Prescribed by: REINALDO CLIFFORD on 02/25/19 1218 Cyanocobalamin (Vitamin B-12) (Vitamin B-12) 1,000 Mcg Tablet, 500 MCG PO DAILY for supplement, (Reported) Entered as Reported by: Yunier Lay on 02/23/19151 Last Taken: UNKNOWN on Unknown Date & Time Last Action: Continued on 02/23/191027 by TOMASZ LOCKE Insulin Detemir (Levemir Flextouch) 100 Unit/1 Ml Insuln.pen, 14 UNIT SQ HS for dm, (Reported) Entered as Reported by: Yunier Lay on 02/23/19151 Last Taken: UNKNOWN on Unknown Date & Time Last Action: Converted on 02/23/191027 by TOMASZ LOCKE Linagliptin (Tradjenta) 5 Mg Tablet, 5 MG PO DAILY for TYPE 2 DIABETES, (Reported) Entered as Reported by: Yunier Lay on 02/23/19151 Last Taken: UNKNOWN on Unknown Date & Time Last Action: Continued on 02/23/191027 by TOMASZ LOCKE Metoprolol Succinate (Metoprolol Succinate ( Xl )) 25 Mg Tab.er.24h, 12.5 MG PO HS for FOR HYPERTENSION, #30 Ref 0 (Reported) Entered as Reported by: Yunier Lay on 02/23/19151 Last Taken: UNKNOWN on Unknown Date & Time Last Action: Continued on 02/23/191027 by TOMASZ LOCKE Omeprazole (Omeprazole) 20 Mg Tablet.dr, 20 MG PO DAILY for reflux, (Reported) Entered as Reported by: Yunier Lay on 02/23/19151 Last Taken: UNKNOWN on Unknown Date & Time Last Action: Converted on 02/23/191027 by TOMASZ LOCKE Polyethylene Glycol 3350 (Miralax) 17 Gm Powd.pack, 1 PKT PO DAILY for constipation, (Reported) Entered as Reported by: Yunier Lay on 02/23/19151 Last Taken: UNKNOWN on Unknown Date & Time Last Action: Converted on 02/23/191027 by TOMASZ LOCKE Simvastatin (Simvastatin) 20 Mg Tablet, 20 MG PO HS for FOR CHOLESTEROL, #30 Ref 0 (Reported) Entered as Reported by: Yunier Lay on 02/23/19151 Last Taken: UNKNOWN on Unknown Date & Time Last Action: Converted on 02/23/191027 by REINALDO GOODMAN MD Feb 25, 2019 12:27
--- NOTE | 2019-02-25 13:29 | NUR ---
IRAIDA faxed clinicals to [facility].
== END 2019-02-25 13:58 | disposition home or self-care (01) | DRG 698 ==
LOC: ER 21:12 → 2 NORTH 22:30 → 5 NORTH 02-23 16:09
PROVIDERS: ADMIT Internal Medicine; ATTEND Internal Medicine
DX: T83.511A Infection and inflammatory reaction due to indwelling urethral catheter, initial encounter (principal); A41.9 Sepsis, unspecified organism; E87.1 Hypo-osmolality and hyponatremia; N39.0 Urinary tract infection, site not specified; N18.3 Chronic kidney disease, stage 3 (moderate); I12.9 Hypertensive chronic kidney disease with stage 1 through stage 4 chronic kidney disease, or unspecified chronic kidney disease; E11.65 Type 2 diabetes mellitus with hyperglycemia; E11.22 Type 2 diabetes mellitus with diabetic chronic kidney disease; F03.90 Unspecified dementia, unspecified severity, without behavioral disturbance, psychotic disturbance, mood disturbance, and anxiety; N31.9 Neuromuscular dysfunction of bladder, unspecified; Z79.899 Other long term (current) drug therapy
CPT/HCPCS: 36415; 71045; 80053; 81001; 82962; 83605; 83880; 84443; 84484; 85025; 87040; 87086; 93005; 96374; J0696; J1650; J1815; J7030; 99285-25

== ENCOUNTER 2019-05-11 22:16 | Emergency (ER) | payer MEDICARE ==
[~2019-05-11] VITALS: Ht 182.9 cm; Wt 88.5 kg
[~2019-05-11 22:16] MED LIST: ASPI-630 PO; CIPR500T94 PO; CYAN-25 PO; HYDR12.58 PO; INSU100I27 SQ; LACT1WAF PO; LINA5TAB PO; MELA3TAB2 PO; METO-239 PO; MULT1TAB52 PO; OMEP20TA8 PO; POLY17PO29 PO; SIMV20TA3 PO; [UNRECOGNIZED DRUG - CODE] OP
--- NOTE | 2019-05-11 22:43 | PHYS DOC ---
Past Medical History Past Medical History: Diabetes-Type II, GERD, High Cholesterol, Hypertension Past Surgical History: Appendectomy, Pacemaker, Other Additional Past Surgical Histo: SUPRAPUBIC CATH Alcohol Use: None Drug Use: None Adult General Chief Complaint Chief Complaint: URINE CATHETER PROBLEM HPI HPI Patient is a 83 year old male with history of indwelling suprapubic catheter since October 2018 who presents with his because catheter came out. Patient states his catheter came out sometimes today and patient was able to urinate after that. Home health care staff was not able to insert with twice try. Patient denies abdominal pain, nausea, fever and chills. Review of Systems Review of Systems Constitutional: Denies fever or chills [] Eyes: Denies change in visual acuity, redness, or eye pain [] HENT: Denies nasal congestion or sore throat [] Respiratory: Denies cough or shortness of breath [] Cardiovascular: No additional information not addressed in HPI [] GI: Denies abdominal pain, nausea, vomiting, bloody stools or diarrhea [] : Denies dysuria or hematuria [] Musculoskeletal: Denies back pain or joint pain [] Integument: Denies rash or skin lesions [] Neurologic: Denies headache, focal weakness or sensory changes [] Endocrine: Denies polyuria or polydipsia [] All other systems were reviewed and found to be within normal limits, except as documented in this note. Current Medications Current Medications Current Medications Medications (Trade) Dose Ordered Sig/Blake Start Time Stop Time Status Last Admin Dose Admin Clonidine HCl (Catapres) 0.1 mg 1X ONCE 05/11/19 23:55 05/11/19 23:56 DC 05/12/19 00:00 0.1 MG Allergies Allergies Allergies Coded Allergies Type Severity Reaction Last Updated Verified No Known Drug Allergies 02/22/19 No Physical Exam Physical Exam Constitutional: Well developed, well nourished, mild distress, non-toxic appearance. [] HENT: Normocephalic, atraumatic. Eyes: PERRLA, EOMI, conjunctiva normal, no discharge. [] Neck: Normal range of motion, no tenderness, supple, no stridor. [] Cardiovascular:Heart rate regular rhythm, no murmur [] Lungs & Thorax: Bilateral breath sounds clear to auscultation [] Abdomen: Bowel sounds normal, soft, no tenderness, no masses, no pulsatile masses. Small orifice of suprapubic catheter in place without drainage or sign of infection. Skin: Warm, dry, no erythema, no rash. [] Back: No tenderness, no CVA tenderness. [] Extremities: No tenderness, no cyanosis, no clubbing, ROM intact, no edema. [] Neurologic: Alert and oriented , no focal deficits noted. [] Current Patient Data Vital Signs Vital Signs Date Time Temp Pulse Resp B/P (MAP) Pulse Ox O2 Delivery O2 Flow Rate FiO2 05/12/19 00:00 93 202/109 05/11/19 22:20 97.6 20 96 Room Air 97.6 EKG EKG [] Radiology/Procedures Radiology/Procedures [] Course & Med Decision Making Course & Med Decision Making Evaluation of patient in ER showed 83-year-old male patient with indwelling suprapubic catheter since October 2018 presented to ER for reinsertion of harmon prapubic catheter that came out in unknown time today. Patient had the small old. Suprapubic area and unable to insert 12 [place] catheter. Patient had 200 mL urine blood and was able to urinate and had diaper. Patient was advised to follow with his urologist at [facility] oriented to this emergency room for insertion of suprapubic catheter by urologist. Patient also had elevation of blood pressure more than 200 that improved with clonidine and was advised to continue his home medication. Dragon Disclaimer Dragon Disclaimer This electronic medical record was generated, in whole or in part, using a voice recognition dictation system. Departure Departure Impression: Primary Impression: Mechanical complication of suprapubic catheter Additional Impression: Hypertensive urgency Disposition: 01 HOME, SELF-CARE (at 2352) Condition: IMPROVED Referrals: STEVE ROSE (PCP) Patient Instructions: Hypertension, Suprapubic Catheter Home Guide Additional Instructions: Follow-up with your urologist or on-call urologist in this hospital in the morning for placement of suprapubic catheter Continue current home medication Return to ER if not getting better Problem Qualifiers Primary Impression: Mechanical complication of suprapubic catheter Encounter type: initial encounter Qualified Codes: T83.090A - Other mechanical complication of cystostomy catheter, initial encounter EMILY KIRBY MD May 11, 2019 22:43
[2019-05-11] MEDS ORDERED: cloNIDine HCL 0.1 MG TABLET PO ONE (23:55)
[2019-05-12 00:15] VITALS: BP 189/102
== END 2019-05-12 00:20 | disposition home or self-care (01) ==
LOC: ER 22:16
DX: T83.090A Other mechanical complication of cystostomy catheter, initial encounter (principal); I16.0 Hypertensive urgency; E11.9 Type 2 diabetes mellitus without complications; K21.9 Gastro-esophageal reflux disease without esophagitis; E78.00 Pure hypercholesterolemia, unspecified; Z90.89 Acquired absence of other organs; Z95.0 Presence of cardiac pacemaker
CPT/HCPCS: 99283; 99284

== ENCOUNTER 2019-07-25 04:58 | Emergency (ER) | payer MEDICARE ==
[~2019-07-25] VITALS: Ht 182.9 cm; Wt 91.2 kg
[~2019-07-25 04:58] MED LIST changes: -MELA3TAB2 PO; +MELA3TAB56 PO; +SIMV20TA18 PO; -SIMV20TA3 PO
[2019-07-25] MEDS ORDERED: LIDOCAINE 2% JELLY 6ML IN APPLICATOR. ONE (06:00)
--- NOTE | 2019-07-25 06:21 | PHYS DOC ---
Past Medical History Past Medical History: Diabetes-Type II, GERD, High Cholesterol, Hypertension Past Surgical History: Appendectomy, Pacemaker, Other Additional Past Surgical Histo: SUPRAPUBIC CATH Alcohol Use: None Drug Use: None Adult General Chief Complaint Chief Complaint: URINE CATHETER PROBLEM HPI HPI Patient is an 83-year-old male who presents to the emergency department for evaluation. He has a long-standing history of Mora catheter use, and his catheter stopped draining last night, and he feels that his bladder is distended. He denies any other complaints. His urine which is in the collection bag appears clear. He has not had any fevers, flank pain, nausea, vomiting, or any other complaints. There are no alleviating or exacerbating factors to his symptoms. Catheter was changed about a month ago according to his . Bedside bladder scan reveals greater than 600 mL of urine in the bladder. Review of Systems Review of Systems Constitutional: Denies fever or chills [] Eyes: Denies change in visual acuity, redness, or eye pain [] HENT: Denies nasal congestion or sore throat [] Respiratory: Denies cough or shortness of breath [] Cardiovascular: The patient denies any shortness of breath, chest pain, palpitations, or orthopnea [] GI: Denies abdominal pain (other than bladder distention), nausea, vomiting, bloody stools or diarrhea [] : Denies dysuria or hematuria [] Musculoskeletal: Denies back pain or joint pain [] Integument: Denies rash or skin lesions [] Neurologic: Denies headache, focal weakness or sensory changes [] Endocrine: Denies polyuria or polydipsia [] All other systems were reviewed and found to be within normal limits, except as documented in this note. Current Medications Current Medications Current Medications Medications (Trade) Dose Ordered Sig/Blake Start Time Stop Time Status Last Admin Dose Admin Lidocaine HCl (Glydo (Lidocaine) Jelly) 6 betty Lingoing-MED ONCE 07/25/19 06:00 07/25/19 06:00 DC Allergies Allergies Allergies Coded Allergies Type Severity Reaction Last Updated Verified No Known Drug Allergies 02/22/19 No Physical Exam Physical Exam PHYSICAL EXAM: CONSTITUTIONAL: Well developed, well nourished HEAD: normocephalic, atraumatic EENT: PERRL, EOMI. Conjunctivae normal color, sclerae non-icteric; moist mucous membranes. NECK: Supple, non-tender; no meningismus. LUNGS: Lungs CTA, breathing even and unlabored. Normal air movement. HEART: Regular rate and rhythm, no murmur CHEST: No deformity; non-tender ABDOMEN: The abdomen is soft, there is firmness in the lower abdomen/suprapubic area, consistent with bladder distention, the remainder of the abdomen is soft and non-tender, no masses or bruits. EXTREM: Normal ROM; no deformity, no calf tenderness. Normal pulses palpable in all extremities. There is no pedal edema. SKIN: No rash; no diaphoresis NEURO: Alert; normal speech and cognition; CN's grossly intact; strength grossly intact without focal deficit. BACK: No CVA TTP. GENITOURINARY: Normal external genitalia, there is a Mora catheter in place. Current Patient Data Vital Signs Vital Signs Date Time Temp Pulse Resp B/P (MAP) Pulse Ox O2 Delivery O2 Flow Rate FiO2 07/25/19 05:11 97.3 81 22 216/103 (140) 95 Room Air 97.3 EKG EKG [] Radiology/Procedures Radiology/Procedures [] Course & Med Decision Making Course & Med Decision Making Mora catheter was placed, with resultant drainage of free-flowing, clear- appearing urine. The patient's symptoms have been relieved. Patient's blood pressure is also improved after Mora catheter placement. Dragon Disclaimer Dragon Disclaimer This electronic medical record was generated, in whole or in part, using a voice recognition dictation system. Departure Departure Impression: Primary Impression: Urinary retention Additional Impression: Mora catheter problem Disposition: 01 HOME, SELF-CARE Condition: STABLE Referrals: STEVE ROSE (PCP) Patient Instructions: Mora Catheter Care, Adult, Urinary Retention, Acute, Male Problem Qualifiers NELLY MURO MD Jul 25, 2019 06:21
[2019-07-25 06:30] VITALS: BP 126/70
== END 2019-07-25 06:55 | disposition home or self-care (01) ==
LOC: ER 04:58
DX: T83.098A Other mechanical complication of other urinary catheter, initial encounter (principal); R33.9 Retention of urine, unspecified; E78.00 Pure hypercholesterolemia, unspecified; K21.9 Gastro-esophageal reflux disease without esophagitis; E11.9 Type 2 diabetes mellitus without complications; I10 Essential (primary) hypertension; Z95.0 Presence of cardiac pacemaker; Z90.89 Acquired absence of other organs; Y84.6 Urinary catheterization as the cause of abnormal reaction of the patient, or of later complication, without mention of misadventure at the time of the procedure; Y92.89 Other specified places as the place of occurrence of the external cause
CPT/HCPCS: 51702; 99284; A4314

== ENCOUNTER 2019-09-18 20:39 | Emergency (ER) | payer MEDICARE ==
[~2019-09-18] VITALS: Ht 182.9 cm; Wt 93.0 kg
[2019-09-18 21:42] LABS: BILIRUBIN,URINE NEGATIVE (NEG); CLARITY,URINE CLOUDY; COLOR,URINE RED; NITRITE,URINE NEGATIVE (NEG); PROTEIN,URINE 30 mg/dL (NEG-TRACE)
[2019-09-18 21:48] VITALS: BP 199/91
[2019-09-18 21:50] LABS: BACTERIA,URINE FEW /HPF (0-FEW); RBC,URINE TNTC /HPF (0-2); WBC,URINE TNTC /HPF (0-4)
[2019-09-18 21:51] LABS: SQUAMOUS EPITHELIAL CELL,UR FEW /LPF
--- NOTE | 2019-09-18 21:52 | PHYS DOC ---
Past Medical History Past Medical History: Diabetes-Type II, GERD, High Cholesterol, Hypertension Past Surgical History: Appendectomy, Pacemaker, Other Additional Past Surgical Histo: SUPRAPUBIC CATH Alcohol Use: None Drug Use: None Adult General Chief Complaint Chief Complaint: URINE CATHETER PROBLEM HPI HPI 84-year-old male with underlying history of hypertension, hyperlipidemia, diabetes, chronic indwelling catheter presents to emergency department with complaints of hematuria. Patient is on blood thinning medications and states he noticed some bloating urine as well as small clots. Catheter has been changed within the last month according to his daughter. He denies any pain on exam ination denies any trauma that he is aware of. She denies any fever, nausea, vomiting, abdominal pain, headache or visual change. Review of Systems Review of Systems Constitutional: Denies fever or chills [] Respiratory: Denies cough or shortness of breath [] Cardiovascular: No additional information not addressed in HPI [] GI: Denies abdominal pain, nausea, vomiting, bloody stools or diarrhea [] : hematuria [] Musculoskeletal: Denies back pain or joint pain [] Neurologic: Denies headache, focal weakness or sensory changes [] All other systems were reviewed and found to be within normal limits, except as documented in this note. Allergies Allergies Allergies Coded Allergies Type Severity Reaction Last Updated Verified No Known Drug Allergies 02/22/19 No Physical Exam Physical Exam Constitutional: Well developed, well nourished, no acute distress, non-toxic appearance. [] Cardiovascular:Heart rate regular rhythm, no murmur [] Lungs & Thorax: Bilateral breath sounds clear to auscultation [] Abdomen: Bowel sounds normal, soft, no tenderness, no masses, no pulsatile masses. [] Skin: Warm, dry, no erythema, no rash. [] Back: No tenderness, no CVA tenderness. [] Extremities: No tenderness, no edema. [] Neurologic: Alert and oriented X 3, no focal deficits noted. [] Psychologic: Affect normal, judgement normal, mood normal. [] Current Patient Data Vital Signs Vital Signs Date Time Temp Pulse Resp B/P (MAP) Pulse Ox O2 Delivery O2 Flow Rate FiO2 09/18/19 20:55 99.3 23 207/98 (134) 95 Room Air 99.3 Lab Values Laboratory Tests Test 09/18/19 20:57 Urine Collection Type Unknown Urine Color Red Urine Clarity Cloudy Urine pH 6.0 Urine Specific [place] 1.020 Urine Protein 30 mg/dL (NEG-TRACE) Urine Glucose (UA) >=1000 mg/dL (NEG) Urine Ketones (Stick) Trace mg/dL (NEG) Urine Blood Large (NEG) Urine Nitrite Negative (NEG) Urine Bilirubin Negative (NEG) Urine Urobilinogen Dipstick 1.0 mg/dL (0.2 mg/dL) Urine Leukocyte Esterase Large (NEG) Urine RBC Tntc /HPF (0-2) Urine WBC Tntc /HPF (0-4) Urine Squamous Epithelial Cells Few /LPF Urine Bacteria Few /HPF (0-FEW) Urine Mucus Mod /LPF EKG EKG [] Radiology/Procedures Radiology/Procedures [] Course & Med Decision Making Course & Med Decision Making Pertinent Labs and Imaging studies reviewed. (See chart for details) []84-year-old male with underlying history of hypertension, hyperlipidemia, diabetes, chronic indwelling catheter presents to emergency department with complaints of hematuria. Patient is on blood thinning medications and states he noticed some bloating urine as well as small clots. Catheter has been changed within the last month according to his daughter. He denies any pain on examination denies any trauma that he is aware of. She denies any fever, nausea, vomiting, abdominal pain, headache or visual change. UAD reviewed no plans to treat given chronic indwelling catheter Catheter exchanged in ER without evidence of hematuria on exam Discussed findings with patient/family at bedside Recommend dc home with follow up as needed with PCP Return precautions provided Dragon Disclaimer Dragon Disclaimer This electronic medical record was generated, in whole or in part, using a voice recognition dictation system. Departure Departure Impression: Primary Impression: Hematuria Disposition: 01 HOME, SELF-CARE Condition: STABLE Referrals: STEVE ROSE (PCP) Patient Instructions: Hematuria-Brief Additional Instructions: Recommend follow up with PCP 3 - 5 days Return to the ER with worsening symptoms, intractable pain, fever, altered mental status Tylenol/Motrin as needed for pain Catheter exchanged in the ER Problem Qualifiers Primary Impression: Hematuria Hematuria type: unspecified type Qualified Codes: R31.9 - Hematuria, unspecified SPEEDY KENDRICK MD Sep 18, 2019 21:52
[2019-09-25] MEDS ORDERED: DONE5TAB56 PO (12:34)
== END 2019-09-18 22:21 | disposition home or self-care (01) ==
LOC: ER 20:39
DX: R31.9 Hematuria, unspecified (principal); R14.0 Abdominal distension (gaseous); I10 Essential (primary) hypertension; E78.5 Hyperlipidemia, unspecified; E11.9 Type 2 diabetes mellitus without complications; K21.9 Gastro-esophageal reflux disease without esophagitis; Z90.49 Acquired absence of other specified parts of digestive tract; Z95.0 Presence of cardiac pacemaker
CPT/HCPCS: 51702; 81001; 87086; 87186; 99284

== ENCOUNTER 2019-09-22 19:09 | Emergency (ER) | payer MEDICARE ==
[~2019-09-22] VITALS: Ht 185.4 cm; Wt 93.0 kg
[2019-09-22 20:39] LABS: INFLUENZA A PATIENT NEGATIVE (NEGATIVE); INFLUENZA B PATIENT NEGATIVE (NEGATIVE)
--- NOTE | 2019-09-22 21:18 | PHYS DOC ---
Past Medical History Past Medical History: Diabetes-Type II, GERD, High Cholesterol, Hypertension Past Surgical History: Appendectomy, Pacemaker, Other Alcohol Use: None Drug Use: None Adult General Chief Complaint Chief Complaint: MECHANICAL FALL HPI HPI 84-year-old male with underlying history of atrial fibrillation, pacemaker placement, chronic anticoagulation presents to the emergency department with syncopal episode. Patient states he fell in his room hitting his head with unknown loss of consciousness. He denies any chest pain, shortness breath, nausea, vomiting. Patient does have a history of syncopal episodes, he see neurology as well as cardiology with significant workup without cause. Daughter states his last episode was in May. She denies any complaints at this time of headache or visual change. He is on Eliquis. Review of Systems Review of Systems Constitutional: Denies fever or chills [] Respiratory: Denies cough or shortness of breath [] Cardiovascular: No additional information not addressed in HPI [] GI: Denies abdominal pain, nausea, vomiting, bloody stools or diarrhea [] Musculoskeletal: Denies back pain or joint pain [] Neurologic: Denies headache, focal weakness or sensory changes [] All other systems were reviewed and found to be within normal limits, except as documented in this note. Allergies Allergies Allergies Coded Allergies Type Severity Reaction Last Updated Verified No Known Drug Allergies 02/22/19 No Physical Exam Physical Exam Constitutional: Well developed, well nourished, no acute distress, non-toxic appearance. [] HENT: Normocephalic, atraumatic, bilateral external ears normal, oropharynx moist, no oral exudates, nose normal. [] Eyes: PERRLA, EOMI, conjunctiva normal, no discharge. [] Neck: Normal range of motion, no tenderness, supple, no stridor. [] Cardiovascular:Heart rate regular rhythm, no murmur [] Lungs & Thorax: Bilateral breath sounds clear to auscultation [] Abdomen: Bowel sounds normal, soft, no tenderness, no masses, no pulsatile masses. [] Skin: Warm, dry, no erythema, no rash. [] Back: No tenderness, no CVA tenderness. [] Extremities: No tenderness, no edema. [] Neurologic: Alert and oriented X 3, no focal deficits noted. [] Psychologic: Affect normal, judgement normal, mood normal. [] Current Patient Data Vital Signs Vital Signs Date Time Temp Pulse Resp B/P (MAP) Pulse Ox O2 Delivery O2 Flow Rate FiO2 09/22/19 19:59 100.1 80 20 164/75 (104) 93 Room Air 100.1 Lab Values Laboratory Tests Test 09/22/19 19:55 White Blood Count 9.5 x10^3/uL (4.0-11.0) Red Blood Count 4.12 x10^6/uL (4.30-5.70) L Hemoglobin 12.3 g/dL (13.0-17.5) L Hematocrit 37.1 % (39.0-53.0) L Mean Corpuscular Volume 90 fL (79-100) Mean Corpuscular Hemoglobin 30 pg (25-35) Mean Corpuscular Hemoglobin Concent 33 g/dL (31-37) Red Cell Distribution Width 14.2 % (11.5-14.5) Platelet Count 183 x10^3/uL (140-400) Neutrophils (%) (Auto) 89 % (31-73) H Lymphocytes (%) (Auto) 4 % (24-48) L Monocytes (%) (Auto) 6 % (0-9) Eosinophils (%) (Auto) 1 % (0-3) Basophils (%) (Auto) 0 % (0-3) Neutrophils # (Auto) 8.4 x10^3/uL (1.8-7.7) H Lymphocytes # (Auto) 0.4 x10^3/uL (1.0-4.8) L Monocytes # (Auto) 0.6 x10^3/uL (0.0-1.1) Eosinophils # (Auto) 0.0 x10^3/uL (0.0-0.7) Basophils # (Auto) 0.0 x10^3/uL (0.0-0.2) Segmented Neutrophils % 77 % (35-66) H Band Neutrophils % 7 % (0-9) Lymphocytes % 6 % (24-48) L Monocytes % 7 % (0-10) Eosinophils % 3 % (0-5) Platelet Estimate Adequate (ADEQUATE) Sodium Level 130 mmol/L (136-145) L Potassium Level 4.3 mmol/L (3.5-5.1) Chloride Level 94 mmol/L (98-107) L Carbon Dioxide Level 29 mmol/L (21-32) Anion Gap 7 (6-14) Blood Urea Nitrogen 19 mg/dL (8-26) Creatinine 1.3 mg/dL (0.7-1.3) Estimated GFR (Cockcroft-Gault) 52.5 BUN/Creatinine Ratio 15 (6-20) Glucose Level 270 mg/dL (70-99) H Calcium Level 8.7 mg/dL (8.5-10.1) Total Bilirubin 0.6 mg/dL (0.2-1.0) Aspartate Amino Transferase (AST) 12 U/L (15-37) L Alanine Aminotransferase (ALT) 11 U/L (16-63) L Alkaline Phosphatase 92 U/L (46-116) Total Protein 7.4 g/dL (6.4-8.2) Albumin 3.5 g/dL (3.4-5.0) Albumin/Globulin Ratio 0.9 (1.0-1.7) L Influenza Type A Antigen Negative (NEGATIVE) Influenza Type B Antigen Negative (NEGATIVE) Laboratory Tests 09/22/19 19:55 Laboratory Tests 09/22/19 19:55 EKG EKG EKG reviewed, left axis deviation, normal sinus rhythm, heart rate 82, no evidence of ST elevation VT, interpretation time 1950 there is evidence of right bundle branch block appreciated[] Radiology/Procedures Radiology/Procedures [facility] [address] [place] [address] IMAGING REPORT Signed PATIENT: MJ PATTEN ACCOUNT: [id number] : 1935 LOCATION: ER AGE: 84 SEX: M EXAM STATUS: REG ER ORD. PHYSICIAN: SPEEDY KENDRICK MD REASON: fall, + LOC, coumadin PROCEDURE: CT HEAD AND CERVICAL SPINE WO STUDY: CT head and cervical spine without contrast INDICATION: Fall. Reported loss of consciousness. COMPARISON: CT head 03/21/2019 TECHNIQUE: Axial CT imaging through the head and cervical spine without the use of intravenous contrast. Sagittal and coronal reformats were obtained. One or more of the following individualized dose reduction techniques were utilized for this examination: 1. Automated exposure control 2. Adjustment of the mA and/or kV according to patient size 3. Use of iterative reconstruction technique. FINDINGS: CT head: No acute intracranial hemorrhage. No mass effect or midline shift. Generalized ventricular prominence is not significantly different from the prior on a background of parenchymal volume loss. No newly seen mims-white matter differentiation loss. Redemonstrated patchy and confluent low-attenuation foci throughout the bihemispheric subcortical and periventricular white matter. Unchanged rightward deviation of the nasal bone complex no depressed calvarial fracture. CT cervical spine: No acute fracture or traumatic malalignment. Mild superior endplate concavity such as at T1 appears chronic. Multilevel discogenic arthrosis, uncovertebral joint hypertrophy, disc osteophyte complex formation and facet degeneration. Resultant bony central canal encroachment is most pronounced at C4-C5 and C5-C6 appearing relatively moderate by CT. Bony neural foraminal encroachment at multiple levels ranging from mild to severe such as on the right at C5-C6. No prevertebral hematoma. No soft tissue sequela of trauma involving the dorsal paraspinous soft tissues. Unremarkable thyroid. No apical pneumothorax. IMPRESSION: CT head: 1. No acute intracranial abnormality by CT. 2. Redemonstrated white matter findings most likely on account of relatively advanced chronic microvascular ischemic change. CT cervical spine: 1. No acute fracture or traumatic malalignment. 2. Multifactorial degenerative changes collectively most pronounced at C4-C5 and C5-C6. Electronically signed by: BRYN SMITH MD (09/22/2019 11:31 PM) [facility] DICTATED and SIGNED BY: BRYN SMITH MD DATE: 09/22/19 2338 [] Course & Med Decision Making Course & Med Decision Making Pertinent Labs and Imaging studies reviewed. (See chart for details) []84-year-old male with underlying history of atrial fibrillation, pacemaker placement, chronic anticoagulation presents to the emergency department with syncopal episode. Patient states he fell in his room hitting his head with unknown loss of consciousness. He denies any chest pain, shortness breath, nausea, vomiting. Patient does have a history of syncopal episodes, he see neurology as well as cardiology with significant workup without cause. Daughter states his last episode was in May. She denies any complaints at this time of headache or visual change. He is on Eliquis. Labs reviewed Interrogation without acute process identified CT head/neck negative for acute process Return precautions provided Recommend dc home Follow up with PCP as outpatient Discussed with patient's family - history of syncope in past and follows with Neuro/Cardiology Ignacia Disclaimer Ignacia Disclaimer This electronic medical record was generated, in whole or in part, using a voice recognition dictation system. Departure Departure Impression: Primary Impression: Fall Additional Impression: Syncope Disposition: 01 HOME, SELF-CARE Condition: IMPROVED Referrals: STEVE ROSE (PCP) Patient Instructions: Fall Prevention and Home Safety, [id number], Syncope, [id number] Additional Instructions: Recommend follow up with PCP 3 - 5 days Return to the ER with worsening symptoms, intractable pain, fever, altered mental status Tylenol/Motrin as needed for pain CT head and neck negative for fracture Problem Qualifiers Primary Impression: Fall Encounter type: initial encounter Qualified Codes: W19.XXXA - Unspecified fall, initial encounter Additional Impression: Syncope Syncope type: unspecified Qualified Codes: R55 - Syncope and collapse SPEEDY KENDRICK MD Sep 22, 2019 21:18
[2019-09-22 21:21] LABS: BASO % 0 % (0-3); EOS % 1 % (0-3); HEMATOCRIT 37.1 % (39.0-53.0); HEMOGLOBIN 12.3 g/dL (13.0-17.5); LYMPH # 0.4 x10^3/uL (1.0-4.8); LYMPH % 4 % (24-48); MEAN CORPUSCULAR HEMOGLOBIN 30 pg (25-35); MEAN CORPUSCULAR HGB CONC 33 g/dL (31-37); MEAN CORPUSCULAR VOLUME 90 fL (79-100); MONO # 0.6 x10^3/uL (0.0-1.1); MONO % 6 % (0-9); NEUT # 8.4 x10^3/uL (1.8-7.7); NEUT % 89 % (31-73); PLATELET COUNT 183 x10^3/uL (140-400); RED BLOOD COUNT 4.12 x10^6/uL (4.30-5.70); RED CELL DISTRIBUTION WIDTH 14.2 % (11.5-14.5); WHITE BLOOD COUNT 9.5 x10^3/uL (4.0-11.0)
[2019-09-22 21:31] LABS: CALCIUM 8.7 mg/dL (8.5-10.1); CREATININE 1.3 mg/dL (0.7-1.3); GFR 52.5; POTASSIUM 4.3 mmol/L (3.5-5.1)
[2019-09-22 21:37] LABS: ALBUMIN 3.5 g/dL (3.4-5.0); ALBUMIN/GLOBULIN RATIO 0.9 (1.0-1.7); TOTAL BILIRUBIN 0.6 mg/dL (0.2-1.0); TOTAL PROTEIN 7.4 g/dL (6.4-8.2)
[2019-09-22 21:44] LABS: % BANDS 7 % (0-9); % EOS 3 % (0-5); % LYMPHS 6 % (24-48); % MONOS 7 % (0-10); % SEGS 77 % (35-66); PLT ESTIMATE ADEQUATE (ADEQUATE)
--- NOTE | 2019-09-22 23:34 | RAD ---
STUDY: CT head and cervical spine without contrast INDICATION: Fall. Reported loss of consciousness. COMPARISON: CT head 03/21/2019 TECHNIQUE: Axial CT imaging through the head and cervical spine without the use of intravenous contrast. Sagittal and coronal reformats were obtained. One or more of the following individualized dose reduction techniques were utilized for this examination: 1. Automated exposure control 2. Adjustment of the mA and/or kV according to patient size 3. Use of iterative reconstruction technique. FINDINGS: CT head: No acute intracranial hemorrhage. No mass effect or midline shift. Generalized ventricular prominence is not significantly different from the prior on a background of parenchymal volume loss. No newly seen mims-white matter differentiation loss. Redemonstrated patchy and confluent low-attenuation foci throughout the bihemispheric subcortical and periventricular white matter. Unchanged rightward deviation of the nasal bone complex no depressed calvarial fracture. CT cervical spine: No acute fracture or traumatic malalignment. Mild superior endplate concavity such as at T1 appears chronic. Multilevel discogenic arthrosis, uncovertebral joint hypertrophy, disc osteophyte complex formation and facet degeneration. Resultant bony central canal encroachment is most pronounced at C4-C5 and C5-C6 appearing relatively moderate by CT. Bony neural foraminal encroachment at multiple levels ranging from mild to severe such as on the right at C5-C6. No prevertebral hematoma. No soft tissue sequela of trauma involving the dorsal paraspinous soft tissues. Unremarkable thyroid. No apical pneumothorax. IMPRESSION: CT head: 1. No acute intracranial abnormality by CT. 2. Redemonstrated white matter findings most likely on account of relatively advanced chronic microvascular ischemic change. CT cervical spine: 1. No acute fracture or traumatic malalignment. 2. Multifactorial degenerative changes collectively most pronounced at C4-C5 and C5-C6. Electronically signed by: BRYN SMITH MD (09/22/2019 11:31 PM) [facility]
[2019-09-22 23:48] VITALS: BP 158/82
--- NOTE | 2019-09-23 06:47 | EKG ---
[facility] [address] [place] [address] Test Date: 2019-09-22 Test Time: 19:51:11 Pat Name: MJ PATTEN Department: Room: Gender: M [place]key: : 1935 Requested By: SPEEDY KENDRICK Order Number: [id number] Reading MD: Measurements Intervals [place] Rate: 82 P: -86 IA: 168 QRS: -59 QRSD: 128 T: 101 QT: 398 QTc: 468 Interpretive Statements SINUS RHYTHM ABNORMAL LEFT AXIS DEVIATION LEFT ANTERIOR FASCICULAR BLOCK RIGHT BUNDLE BRANCH BLOCK BIFASCICULAR BLOCK ABNORMAL ECG RI6.01 No previous ECG available for comparison
[2019-09-25] MEDS ORDERED: DONE5TAB56 PO (12:34)
[2019-09-28] MEDS ORDERED: CITA20TA9 PO (13:07)
[2019-09-28] MEDS ORDERED: CEFD300C PO (13:07)
== END 2019-09-23 00:02 | disposition home or self-care (01) ==
LOC: ER 19:09
DX: S09.90XA Unspecified injury of head, initial encounter (principal); R55 Syncope and collapse; R51 Headache; I48.91 Unspecified atrial fibrillation; E11.9 Type 2 diabetes mellitus without complications; K21.9 Gastro-esophageal reflux disease without esophagitis; E78.00 Pure hypercholesterolemia, unspecified; I10 Essential (primary) hypertension; Z79.01 Long term (current) use of anticoagulants; Z95.0 Presence of cardiac pacemaker; W18.09XA Striking against other object with subsequent fall, initial encounter; Y93.89 Activity, other specified; Y92.89 Other specified places as the place of occurrence of the external cause; Y99.8 Other external cause status
CPT/HCPCS: 36415; 70450; 72125; 80053; 85007; 85025; 87804; 93005; 99285-25

== ENCOUNTER 2019-09-23 19:00 | Emergency (ER) | payer MEDICARE ==
[~2019-09-23] VITALS: Ht 182.9 cm; Wt 93.0 kg
--- NOTE | 2019-09-23 19:54 | PHYS DOC ---
Past Medical History Past Medical History: Diabetes-Type II, GERD, High Cholesterol, Hypertension Past Surgical History: Appendectomy, Pacemaker, Other Additional Past Surgical Histo: SUPRAPUBIC CATH Alcohol Use: None Drug Use: None Adult General Chief Complaint Chief Complaint: MECHANICAL FALL HPI HPI Patient is a 84 year old male who was brought here from group home after he fell and hit head on the ground. Patient complaint of headache and neck pain. Patient denies any back pain, no extremity pain, no pelvic pain, no hip pain. Patient said he was walking and tripped on something and fell backwards. She was seen here last night for the same problem. Patient has history of syncopal episode, he had been worked up by cardiology and neurology in the past. Patient has history of atrial fibrillation ,has pacemaker, he is on Eliquis chronically. aLL OTHER ros IS NEGATIVE UNLESS OTHERWISE NOTED IN hpi Review of Systems Review of Systems See above Allergies Allergies Allergies Coded Allergies Type Severity Reaction Last Updated Verified No Known Drug Allergies 02/22/19 No Physical Exam Physical Exam See above Constitutional: Well developed, well nourished, no acute distress, non-toxic appearance. [] HENT: Normocephalic, AN AREA OF 6 CM BY 6 CM CONTUSION ON RIGHT OCCIPITAL AREA, bilateral external ears normal, oropharynx moist, no oral exudates, nose normal. [] Eyes: PERRLA, EOMI, conjunctiva normal, no discharge. [] Neck: Normal range of motion, no tenderness, supple, no stridor. [] Cardiovascular:Heart rate regular rhythm, no murmur [] Lungs & Thorax: Bilateral breath sounds clear to auscultation [] Abdomen: Bowel sounds normal, soft, no tenderness, no masses, no pulsatile masses. [] Skin: Warm, dry, no erythema, no rash. [] Back: No tenderness, no CVA tenderness. [] Extremities: No tenderness, no cyanosis, no clubbing, ROM intact, no edema. [] Neurologic: Alert and oriented X 3, normal motor function, normal sensory function, no focal deficits noted. [] Psychologic: Affect normal, judgement normal, mood normal. [] Current Patient Data Vital Signs Vital Signs Date Time Temp Pulse Resp B/P (MAP) Pulse Ox O2 Delivery O2 Flow Rate FiO2 09/23/19 21:20 80 21 91 09/23/19 19:06 99.4 99.4 1/3/20 19:00 188/85 (119) Room Air EKG EKG [] Radiology/Procedures Radiology/Procedures [][facility] [address] [place] [address] IMAGING REPORT Signed PATIENT: MJ PATTEN ACCOUNT: [id number] : 1935 LOCATION: ER AGE: 84 SEX: M EXAM STATUS: PRE ER ORD. PHYSICIAN: JHONATAN PEACOCK DO REASON: FELL, HEAD AND NECK PAIN, ON BLOOD THINNERS PROCEDURE: CT HEAD AND CERVICAL SPINE WO CT head without contrast: Reason for examination: Fell with head and neck pain. On blood thinners. Comparison is made to previous study dated 03/21/2019. Axial images were obtained through the brain. No contrast was administered. Reconstruction was performed in sagittal and coronal planes. Ventricular systems are symmetric and not abnormally dilated considering generalized atrophy. No midline shift is seen. There is no evidence of intracranial hemorrhage, acute infarct, mass or edema. There are patchy deep white matter changes in the frontal and parietal lobes consistent with microvascular ischemic changes. No abnormalities are seen at the orbits. The paranasal sinuses and mastoid air cells are clear. No acute abnormality seen in the skull. There is a right scalp hematoma in the parietal region. IMPRESSION: Cerebral atrophy with microvascular ischemic changes but no acute intracranial abnormality. Scalp hematoma however is present in the right parietal region. CT cervical spine without contrast: Helical images were obtained through the cervical spine from skull base through the thoracic apices with no contrast administered. Reconstruction was performed in sagittal and coronal planes. The C1 ring is intact. The odontoid process appears to be intact and normally centered between the lateral masses of C1. The cervical vertebral bodies are normally aligned anteriorly and posteriorly. No acute fracture or subluxation is seen. Posterior elements are intact. There are degenerative changes at the C4-5 and C5-6 disc levels with moderate loss of disc height and hypertrophic spurs. There is mild central canal stenosis at these levels. Prevertebral soft tissues are normal. IMPRESSION: Degenerative spondylosis with degenerative disc disease at the C4-5 and C5-6 level with mild central canal stenosis. No acute abnormality in the cervical spine. Exposure: One or more of the following individualized dose reduction techniques were utilized for this examination: 1. Automated exposure control 2. Adjustment of the mA and/or kV according to patient size 3. Use of iterative reconstruction technique. Electronically signed by: Pamela Amanda MD (09/23/2019 8:50 PM) [facility] DICTATED and SIGNED BY: PAMELA AMANDA MD DATE: 09/23/192049 Course & Med Decision Making Course & Med Decision Making Pertinent Labs and Imaging studies reviewed. (See chart for details) Patient is a 84-year-old male with history of recurrent syncopal episode, had been evaluated by neurology and cardiology at [facility] past. Daughter was here who had power of estate attorney did not want anymore diagnostic workup. Patien'S daughter would like to an order to remove Elliquis from his daily home medication due to frequent fall. The daughter will take the patient back to the assisted living facility. Dragon Disclaimer Dragon Disclaimer This electronic medical record was generated, in whole or in part, using a voice recognition dictation system. Departure Departure Impression: Primary Impression: Scalp hematoma Additional Impression: Recurrent hematuria syndrome Disposition: HOME, SELF-CARE Condition: STABLE Referrals: STEVE ROSE (PCP) please follow up with your doctor on thursday Patient Instructions: Head Injury, Adult, Syncope Additional Instructions: STOP TAKING ELIQUIS from now on. Call your doctor on Thursday. Problem Qualifiers JHONATAN PEACOCK DO Sep 23, 2019 19:54
--- NOTE | 2019-09-23 20:53 | RAD ---
CT head without contrast: Reason for examination: Fell with head and neck pain. On blood thinners. Comparison is made to previous study dated 03/21/2019. Axial images were obtained through the brain. No contrast was administered. Reconstruction was performed in sagittal and coronal planes. Ventricular systems are symmetric and not abnormally dilated considering generalized atrophy. No midline shift is seen. There is no evidence of intracranial hemorrhage, acute infarct, mass or edema. There are patchy deep white matter changes in the frontal and parietal lobes consistent with microvascular ischemic changes. No abnormalities are seen at the orbits. The paranasal sinuses and mastoid air cells are clear. No acute abnormality seen in the skull. There is a right scalp hematoma in the parietal region. IMPRESSION: Cerebral atrophy with microvascular ischemic changes but no acute intracranial abnormality. Scalp hematoma however is present in the right parietal region. CT cervical spine without contrast: Helical images were obtained through the cervical spine from skull base through the thoracic apices with no contrast administered. Reconstruction was performed in sagittal and coronal planes. The C1 ring is intact. The odontoid process appears to be intact and normally centered between the lateral masses of C1. The cervical vertebral bodies are normally aligned anteriorly and posteriorly. No acute fracture or subluxation is seen. Posterior elements are intact. There are degenerative changes at the C4-5 and C5-6 disc levels with moderate loss of disc height and hypertrophic spurs. There is mild central canal stenosis at these levels. Prevertebral soft tissues are normal. IMPRESSION: Degenerative spondylosis with degenerative disc disease at the C4-5 and C5-6 level with mild central canal stenosis. No acute abnormality in the cervical spine. Exposure: One or more of the following individualized dose reduction techniques were utilized for this examination: 1. Automated exposure control 2. Adjustment of the mA and/or kV according to patient size 3. Use of iterative reconstruction technique. Electronically signed by: Pamela Saldivar MD (09/23/2019 8:50 PM) [facility]
[2019-09-23 21:20] VITALS: BP 168/79
[2019-09-25] MEDS ORDERED: DONE5TAB56 PO (12:34)
[2019-09-28] MEDS ORDERED: CITA20TA9 PO (13:07)
[2019-09-28] MEDS ORDERED: CEFD300C PO (13:07)
== END 2019-09-23 22:03 | disposition home or self-care (01) ==
LOC: ER 19:00
DX: S00.03XA Contusion of scalp, initial encounter (principal); N02.9 Recurrent and persistent hematuria with unspecified morphologic changes; M54.2 Cervicalgia; E11.9 Type 2 diabetes mellitus without complications; K21.9 Gastro-esophageal reflux disease without esophagitis; E78.00 Pure hypercholesterolemia, unspecified; I10 Essential (primary) hypertension; Z95.0 Presence of cardiac pacemaker; W18.09XA Striking against other object with subsequent fall, initial encounter; Y93.89 Activity, other specified; Y92.128 Other place in nursing home as the place of occurrence of the external cause; Y99.8 Other external cause status
CPT/HCPCS: 70450; 72125; 99284-25

== ENCOUNTER 2020-09-02 15:17 | Emergency (ER) | payer MEDICARE ==
[~2020-09-02] VITALS: Ht 182.9 cm; Wt 90.0 kg
[~2020-09-02 15:17] MED LIST changes: +AMOX1TAB11 PO; +CEFD300C PO; +CITA20TA9 PO; +DONE5TAB56 PO; +MELA3TAB4 PO; -MELA3TAB56 PO; +METHENAMINE HIPP1 GM PO; +MULT-445 PO; -MULT1TAB52 PO
--- NOTE | 2020-09-02 15:44 | PHYS DOC ---
Past Medical History Past Medical History: Dementia, Diabetes-Type II, GERD, High Cholesterol, Hypertension Past Surgical History: Appendectomy, Pacemaker, Other Additional Past Surgical Histo: SUPRAPUBIC CATH Smoking Status: Never Smoker Alcohol Use: None Drug Use: None General Adult EDM: Chief Complaint: HEAD INJURY/TRAUMA HPI: HPI: Patient is a 85 year old male with a history of dementia, hypertension, high c holesterol, diabetes type 2, who presents to the ED today to be evaluated after falling. Patient resides in a retirement, retirement reports states patient fell out of his wheelchair hitting his face on the ground. He had glasses on that broke during bruising his face. No loss of consciousness. Patient is a very poor historian. Patient unable to tell if he is on blood thinners. Review of Systems: Review of Systems: Constitutional: Unable to obtain due to mentation Eyes: Unable to obtain due to mentation HENT: Unable to obtain due to mentation Respiratory: Unable to obtain due to mentation Cardiovascular: Unable to obtain due to mentation GI: Unable to obtain due to mentation : Unable to obtain due to mentation Musculoskeletal: Unable to obtain due to mentation Integument: Bruising noted to the face Neurologic: senior living reports patient falling face forward. Psychiatric: Unable to obtain due to mentation Heart Score: Risk Factors: Risk Factors: DM, Current or recent (<one month) smoker, HTN, HLP, family history of CAD, obesity. Risk Scores: Score 0 - 3: 2.5% MACE over next 6 weeks - Discharge Home Score 4 - 6: 20.3% MACE over next 6 weeks - Admit for Clinical Observation Score 7 - 10: 72.7% MACE over next 6 weeks - Early Invasive Strategies Allergies: Allergies: Allergies Coded Allergies Type Severity Reaction Last Updated Verified No Known Drug Allergies 02/22/19 No Physical Exam: PE: Constitutional: Well developed, well nourished, no acute distress, non-toxic appearance. [] HENT: Normocephalic, bilateral external ears normal, oropharynx moist, no oral exudates, nose normal. [] Eyes: PERRLA, EOMI, conjunctiva normal, no discharge. [] Neck: Normal range of motion, no tenderness, supple, no stridor. [] Cardiovascular:Heart rate regular rhythm, no murmur [] Lungs & Thorax: Bilateral breath sounds clear to auscultation [] Abdomen: Bowel sounds normal, soft, no tenderness, no masses, no pulsatile masses. [] Skin:mild forehead contusion noted Back: No tenderness, no CVA tenderness. [] Extremities: No tenderness, no cyanosis, no clubbing, ROM intact, no edema. [] Neurologic: Alert and oriented X 1-2, normal motor function, normal sensory function, no focal deficits noted. Cranial nerves II through XII intact Psychologic: Affect normal, judgement normal, mood normal. [] Current Patient Data: Vital Signs: Vital Signs Date Time Temp Pulse Resp B/P (MAP) Pulse Ox O2 Delivery O2 Flow Rate FiO2 09/02/20 15:17 98.4 85 16 153/80 (104) 93 Room Air 98.4 EKG: EKG: [] Radiology/Procedures: Radiology/Procedures: []PROCEDURE: CT MAXILLOFACIAL WO CONTRAST Exam: CT head, face and cervical spine without contrast INDICATION: Fall today TECHNIQUE: Sequential axial images through the head, face and cervical spine w ere obtained without the administration of IV contrast. Comparisons: 09/25/2019 FINDINGS: Head: No focal parenchymal lesion or hemorrhage is identified. There is no midline shift or sulcal effacement. Patchy hypodensity in the periventricular white matter, similar prior exam. No acute vascular territory infarction is identified. Garcia-white distinction is preserved. The ventricular system is within normal limits without compression hydrocephalus. The basal cisterns are well maintained. Face: Mild extra cranial soft tissue scalp contusion overlying the right frontal region. The visualized portions of the paranasal sinuses and mastoid air cells are well-pneumatized. No acute fractures. Cervical spine: Vertebral body heights and alignment are well-maintained. Fracture to the cervical spine is not identified. Multilevel spondylotic change in cervical spine with degenerative disc disease greatest at C4-C5 and C5-C6. Mild bilateral facet arthropathy is also noted. Visualized paraspinal soft tissues are unremarkable. IMPRESSION: 1. Mild extra cranial soft tissue scalp contusion overlying the right frontal region without underlying osseous abnormality. 2. No acute intracranial abnormality. 3. Negative CT C-spine for acute traumatic injury. Exposure: One or more of the following in the visualized dose reduction techniques were utilized for this examination: 1. Automated exposure control 2. Adjustment of the MA and/or KV according to patient size Use of iterative of reconstructive technique Electronically signed by: Denisse Guerrero MD (09/02/2020 4:26 PM) [facility] DICTATED and SIGNED BY: DENISSE GUERRERO MD DATE: 09/02/20 [id number] 0 Course & Med Decision Making: Course & Med Decision Making Pertinent Labs and Imaging studies reviewed. (See chart for details) This is a 85-year-old male patient presenting to the ED today to be evaluated after falling from a wheelchair in a retirement. No loss of consciousness. CT of the head is negative for any acute findings. CT of the cervical spine is negative, CT of maxillofacial was noted for mild forehead contusion otherwise no acute findings. Urine analysis positive for UTI, discharged on cephalexin. Follow-up with PCP next week Ignacia Disclaimer: Dragjanet Disclaimer: This electronic medical record was generated, in whole or in part, using a voice recognition dictation system. Departure Departure Impression: Primary Impression: Fall Qualified Codes: W19.XXXA - Unspecified fall, initial encounter Additional Impressions: Forehead contusion Qualified Codes: S00.83XA - Contusion of other part of head, initial encounter Closed head injury Qualified Codes: S09.90XA - Unspecified injury of head, initial encounter UTI (urinary tract infection) Qualified Codes: N39.0 - Urinary tract infection, site not specified Disposition: 01 DC HOME SELF CARE/HOMELESS Condition: STABLE Referrals: STEVE ROSE (PCP) Follow-up next week Patient Instructions: Contusion, [id number], Fall Prevention and Home Safety, Head Injury, Adult, [id number] Additional Instructions: You were evaluated in the emergency room after falling, your CAT scan of the head face and neck were negative for any acute findings, you have a contusion on your forehead, ice and elevate the area. You were positive for urinary tract infection, complete the prescribed antibiotics and follow-up with your doctor next week Scripts Cephalexin (CEPHALEXIN) 500 Mg Tablet 1 TAB PO BID, #14 TAB Prov: MCKAYLA QUINONES APRN 09/02/20 MCKAYLA QUINONES APRN Sep 02, 2020 15:44
--- NOTE | 2020-09-02 16:28 | RAD ---
Exam: CT head, face and cervical spine without contrast INDICATION: Fall today TECHNIQUE: Sequential axial images through the head, face and cervical spine were obtained without th e administration of IV contrast. Comparisons: 09/25/2019 FINDINGS: Head: No focal parenchymal lesion or hemorrhage is identified. There is no midline shift or sulcal effaceme nt. Patchy hypodensity in the periventricular white matter, similar prior exam. No acute vascular territo ry infarction is identified. Garcia-white distinction is preserved. The ventricular system is within normal limits without compression hydrocephalus. The basal cisterns are well maintained. Face: Mild extra cranial soft tissue scalp contusion overlying the right frontal region. The visualized por tions of the paranasal sinuses and mastoid air cells are well-pneumatized. No acute fractures. Cervical spine: Vertebral body heights and alignment are well-maintained. Fracture to the cervical spine is not identified. Multilevel spondylotic change in cervical spine with degenerative disc disease greatest at C4-C5 and C5-C6. Mild bilateral facet arthropathy is also noted. Visualized paraspinal soft tissues are unremarkable. IMPRESSION: 1. Mild extra cranial soft tissue scalp contusion overlying the right frontal region without underly ing osseous abnormality. 2. No acute intracranial abnormality. 3. Negative CT C-spine for acute traumatic injury. Exposure: One or more of the following in the visualized dose reduction techniques were utilized for this examination: 1. Automated exposure control 2. Adjustment of the MA and/or KV according to patient size Use of iterative of reconstructive technique Electronically signed by: Denisse Chiang MD (09/02/2020 4:26 PM) [facility]
[2020-09-02 16:49] LABS: BILIRUBIN,URINE NEGATIVE (NEG); COLOR,URINE YELLOW; NITRITE,URINE NEGATIVE (NEG); PROTEIN,URINE NEGATIVE (NEG-TRACE)
[2020-09-02 16:58] LABS: CLARITY,URINE CLEAR
[2020-09-02 16:59] LABS: BACTERIA,URINE MANY /HPF (0-FEW); WBC,URINE 20-40 /HPF (0-4)
[2020-09-02 17:00] LABS: RBC,URINE OCC /HPF (0-2)
[2020-09-02 17:30] VITALS: BP 163/85
[2020-09-02] MEDS ORDERED: CEPH500T PO (17:53)
== END 2020-09-02 18:23 | disposition home or self-care (01) ==
LOC: ER 15:17
DX: S00.83XA Contusion of other part of head, initial encounter (principal); N39.0 Urinary tract infection, site not specified; F03.90 Unspecified dementia, unspecified severity, without behavioral disturbance, psychotic disturbance, mood disturbance, and anxiety; E11.9 Type 2 diabetes mellitus without complications; K21.9 Gastro-esophageal reflux disease without esophagitis; E78.00 Pure hypercholesterolemia, unspecified; I10 Essential (primary) hypertension; Z90.89 Acquired absence of other organs; Z95.0 Presence of cardiac pacemaker; Z98.890 Other specified postprocedural states; W05.0XXA Fall from non-moving wheelchair, initial encounter; Y93.89 Activity, other specified; Y92.89 Other specified places as the place of occurrence of the external cause; Y99.8 Other external cause status
CPT/HCPCS: 70450; 70486; 72125; 81001; 87086; 99285